=== PATIENT | female | born 1980 | race African-American/Black ===

== ENCOUNTER 2020-02-27 00:32 | Emergency (ER) | payer OTHER ==
[~2020-02-27] VITALS: Ht 157.5 cm; Wt 88.6 kg
--- NOTE | 2020-02-27 00:38 | PHYS DOC ---
Past History Past Medical History: CAD, HIV, Hypertension Adult General Chief Complaint Chief Complaint: CHEST PAIN HPI HPI Patient is a 39-year-old female who presents for chest pain. Onset was 3 days ago and has been waxing and waning. Patient reports current episode started 1 hour ago and work here from sleep. Nothing known makes better or worse. Pain described as deep substernal pressure with radiation into left upper extremity, reports it is 8/10 in severity on arrival and has been constant since onset 1 hour ago. Associated symptoms include nausea and mild shortness of breath. Patient denies any fever, COVID-19 contacts, URI-like symptoms, abdominal pain, hemoptysis, productive cough, prior blood clots, recent travel/long distance travel. Of note, patient is HIV positive but admits she has been at undetectable levels for " years". She has history of x2 prior myocardial infarctions and reports x1 cardiac stent that was placed 6 years ago at time of last PR. She takes Plavix daily. She lost insurance coverage and has not seen any of her outpatient physicians in 2019 but she has been compliant with all previously prescribed meds daily. She has nitroglycerin at home which typically resolves similar pains such as presenting pain today but has been out of this me dication for past 1 week Review of Systems Review of Systems Fourteen body systems of review of systems have been reviewed. See HPI for pertinent positives and negative responses, other fall all other systems are negative, non-pertinent or non-contributory Physical Exam Physical Exam Constitutional: Well developed, well nourished, moderate distress, non-toxic appearance. HENT: Normocephalic, atraumatic, bilateral external ears normal, oropharynx moist, no oral exudates, nose normal. Eyes: PERRLA, EOMI, conjunctiva normal, no discharge. Neck: Normal range of motion, no tenderness, supple, no stridor. Cardiovascular: Heart rate regular, sinus rhythm, no murmurs rubs or gallops, nontender chest wall Lungs & Thorax: Bilateral breath sounds clear to auscultation Abdomen: Bowel sounds normal, soft, no tenderness, no masses, no pulsatile masses. Nonsurgical abdomen, no peritoneal signs Skin: Warm, dry, no erythema, no rash. Back: No tenderness, no CVA tenderness. Extremities: No tenderness, no cyanosis, no clubbing, ROM intact, no edema. Neurologic: Alert and oriented X 3, grossly normal motor & sensory function, no focal deficits noted. Psychologic: Affect normal, judgement normal, anxious mood Current Patient Data Vital Signs Vital Signs Date Time Temp Pulse Resp B/P (MAP) Pulse Ox O2 Delivery O2 Flow Rate FiO2 02/27/20 01:12 85 122/87 EKG EKG EKG ordered and interpreted by myself at 00 48 hours as sinus rhythm at 82 bpm, unremarkable intervals, no axis deviation, Q waves present in leads III and aVF likely from prior PR, no acute ischemic findings, no STEMI Radiology/Procedures Radiology/Procedures 1 view chest radiograph ordered and interpreted by myself as no acute cardiopulmonary abnormalities, official radiologist read pending at this time Course & Med Decision Making Course & Med Decision Making Patient seen on immediate ER arrival ABCs grossly non-concerning, IV access obtained Comprehensive history and physical exam performed, subsequent diagnostic work-up ordered 1 L normal saline bolus, x2 sublingual nitros and 4mg IV morphine administered with moderate relief in symptomology ED work-up reviewed, no emergent or surgical findings but did discuss patient is high risk for potential adverse cardiac events if discharged home, I recommended admission for further cardiac monitoring but she declined I will write her a new prescription for nitroglycerin and advised her to follow- up with PCP first thing Friday The patient is AAOx3, exhibits no alcohol or drug intoxication to a point that would impair ability to delineate a choice, and demonstrates all four diego elements of capacity to make decisions regarding the medical care offered. - Patient able to Communicate their treatment choice - Patient able to Understand and recall information - Patient able to Appreciate and process probable outcomes of their condition - Patient able to Reason through communication their rationalization about their choice of care options, regardless of whether I as their provider agree with their rationale. Risks and Recommendations: The risks of refusing recommended care that were disclosed and acknowledged by the patient include loss of current lifestyle, permanent mental impairment, and . The recommended medical care being refused has been discussed with the patient and is to stay for continued monitoring, workup, and possible treatment. Discharge Care: The patient understands they are welcome to return to the hospital at any time to receive the recommended care or any other care at any time, regardless of their ability to pay for such care. Discharge instructions were provided to the patient. Dragon Disclaimer Dragon Disclaimer This electronic medical record was generated, in whole or in part, using a voice recognition dictation system. PERC Rule for PE PERC Rule for PE Response (Comments) Value Age > 50: No 0 HR > 100: No 0 Sa02 on room air <95%: No 0 Unilateral leg swelling: No 0 Hemoptysis: No 0 Recent surgery or trauma: No 0 Prior PE or DVT: No 0 Hormone use: No 0 Total 0 The HEART Score for CP Pts HEART Score for Chest Pain: HEART Score for Chest Pain Response (Comments) Value History Highly Suspicious 2 ECG Normal 0 Age < 45 0 Risk Factors >3 Risk Factors or Hx CAD 2 Troponin < Normal Limit 0 Total 4 Risk Factors: Risk Factors: DM, Current or recent (<one month) smoker, HTN, HLP, family history of CAD, obesity. Risk Scores: Score 0 - 3: 2.5% MACE over next 6 weeks - Discharge Home Score 4 - 6: 20.3% MACE over next 6 weeks - Admit for Clinical Observation Score 7 - 10: 72.7% MACE over next 6 weeks - Early Invasive Strategies Departure Departure: Impression: Primary Impression: Left against medical advice Additional Impressions: Chest pain, rule out acute myocardial infarction Hx of heart artery stent Disposition: 07 AGAINST MEDICAL ADVICE Condition: STABLE Patient Instructions: Chest Pain Observation Additional Instructions: You have been evaluated in the Emergency Department today. You are refusing further testing, imaging, and further admission and choosing to leave against medical advice. You were advised of your risks of leaving and understand that permanent harm, or even , can occur from failing to follow the recommendations of the physician. Please follow up with your primary care physician as needed. If you do not have a primary doctor, you can call your insurance company to find one. If you do not have insurance, you can go to the finance/registration department for more assistance. Return to the Emergency Department immediately if you experience worsening or uncontrolled pain, persistent fevers, recurrent vomiting, blood in vomit, blood in stool, dark tarry stool, chest pain, shortness of breath, or for any other concerning symptoms. Scripts Nitroglycerin (NITROGLYCERIN SubLingual) 0.4 Mg Tab.subl 0.4 MG SL PRN Q5MIN PRN for CHEST PAIN, #14 BOTTLE Prov: JANICE SHAH DO 02/27/20 Justification of Admission: Justification of Admission: Justification of Admission Dx: N/A Problem Qualifiers JANICE SHAH DO Feb 27, 2020 00:37
[2020-02-27] MEDS ORDERED: ASPIRIN CHEWABLE 81 MG TABLET. PO ONE (00:45)
[2020-02-27] MEDS: NITROGLYCERIN SUBLINGUAL 0.4 MG BOTTLE OF 25. SL PRN ×2 (01:08→01:12)
[2020-02-27 01:14] LABS: BASO # 0.1 x10^3/uL (0.0-0.2); BASO % 1 % (0-3); EOS # 0.1 x10^3/uL (0.0-0.7); EOS % 1 % (0-3); HEMATOCRIT 44.2 % (36.0-47.0); HEMOGLOBIN 15.6 g/dL (12.0-15.5); LYMPH # 3.7 x10^3/uL (1.0-4.8); LYMPH % 34 % (24-48); MEAN CORPUSCULAR HEMOGLOBIN 35 pg (25-35); MEAN CORPUSCULAR HGB CONC 35 g/dL (31-37); MEAN CORPUSCULAR VOLUME 100 fL (79-100); MONO # 0.7 x10^3/uL (0.0-1.1); MONO % 6 % (0-9); NEUT # 6.3 x10^3uL (1.8-7.7); NEUT % 58 % (31-73); PLATELET COUNT 290 x10^3/uL (140-400); RED BLOOD COUNT 4.44 x10^6/uL (3.50-5.40); RED CELL DISTRIBUTION WIDTH 11.5 % (11.5-14.5); WHITE BLOOD COUNT 10.9 x10^3/uL (4.0-11.0)
[2020-02-27] MEDS ORDERED: IV NORMAL SALINE 1,000ML 1,000 ML IV ONE (01:30)
[2020-02-27 01:36] LABS: ALBUMIN 3.5 g/dL (3.4-5.0); ALBUMIN/GLOBULIN RATIO 0.9 (1.0-1.7); CALCIUM 8.8 mg/dL (8.5-10.1); CREATININE 1.1 mg/dL (0.6-1.0); MAGNESIUM 1.7 mg/dL (1.8-2.4); TOTAL BILIRUBIN 0.3 mg/dL (0.2-1.0); TOTAL PROTEIN 7.4 g/dL (6.4-8.2)
[2020-02-27] MEDS ORDERED: POTASSIUM CHLORIDE 20 MEQ TABLET.ER. PO ONE (01:45)
[2020-02-27] MEDS ORDERED: MORPHINE SULFATE 4 MG/ML DISP.SYRIN. IV ONE (02:00)
[2020-02-27] MEDS ORDERED: EMTR1TAB9 PO (03:19)
[2020-02-27] MEDS ORDERED: NAPR-514 PO (03:19)
[2020-02-27] MEDS ORDERED: ASPI81TA59 PO (03:19)
[2020-02-27] MEDS ORDERED: ALBU2.5V8 INH (03:19)
[2020-02-27] MEDS ORDERED: potassium OTC PO (03:19)
[2020-02-27] MEDS ORDERED: CLOP75TA57 PO (03:19)
[2020-02-27] MEDS ORDERED: FLUO40CA9 PO (03:19)
[2020-02-27] MEDS ORDERED: ATEN1TAB4 PO (03:19)
--- NOTE | 2020-02-27 03:50 | RAD ---
CHEST AP ONLY Clinical Indication: Reason: cp / Comparison: Two-view chest, August 10, 2005. Findings: The cardiomediastinal silhouette is normal. Lungs are clear. There is no pneumothorax. No pleural effusion is appreciated. No acute bone abnormality. IMPRESSION: No acute cardiopulmonary process. Electronically signed by: Darrion Warner MD (02/27/2020 3:47 AM) [facility]
[2020-02-27 03:52] LABS: AMPHETAMINE/METHAMPHETAMINE NEG (NEG); BARBITURATES NEG (NEG); BENZODIAZEPINES NEG (NEG); CANNABINOIDS NEG (NEG); COCAINE NEG (NEG); METHADONE NEG (NEG); OPIATES POS (NEG); PHENCYCLIDINE NEG (NEG)
[2020-02-27] MEDS ORDERED: NITR0.4T22 SL (04:06)
[2020-02-27] MEDS ORDERED: IBUPROFEN 600 MG TABLET. PO ONE ×2 (04:15→04:47)
[2020-02-27 04:40] VITALS: BP 132/80
--- NOTE | 2020-02-27 05:31 | EKG ---
[facility] ED [facility] [place] [id number] Test Date: 2020-02-27 Test Time: 00:37:42 Pat Name: KIMBERLEY DELGADO Department: Room: Gender: F [employer]: : 1980 Requested By: JANICE SHAH Order Number: [id number] Reading MD: Measurements Intervals Fonda Rate: 82 P: 26 TN: 148 QRS: 35 QRSD: 92 T: 13 QT: 392 QTc: 461 Interpretive Statements SINUS RHYTHM NORMAL ECG RI6.02 No previous ECG available for comparison
== END 2020-02-27 04:45 | disposition left against medical advice (07) ==
LOC: ER 00:32
DX: R07.2 Precordial pain (principal); R06.02 Shortness of breath; I10 Essential (primary) hypertension
CPT/HCPCS: 36415; 71045; 80053; 80307; 83690; 83735; 83880; 84484; 84702; 85025; 93005; 96361; 96374; 99285; J2270; J7030

== ENCOUNTER 2020-04-04 21:11 | Emergency (ER) | payer OTHER ==
[~2020-04-04] VITALS: Ht 157.5 cm; Wt 88.6 kg
[2020-04-04 21:11] VITALS: BP 172/118
[~2020-04-04 21:11] MED LIST: ALBU2.5V8 INH; ASPI81TA59 PO; ATEN1TAB4 PO; CLOP75TA57 PO; EMTR1TAB9 PO; FLUO40CA9 PO; NAPR-514 PO; NITR0.4T22 SL; potassium OTC PO
[2020-04-04] MEDS ORDERED: CYCL5TAB PO (21:53)
[2020-04-04] MEDS ORDERED: ACET-1871 PO (21:53)
--- NOTE | 2020-04-04 21:54 | PHYS DOC ---
Past History Past Medical History: CAD, HIV, Hypertension, IN Past Surgical History: Cholecystectomy, , Tubal ligation, Other Additional Past Surgical Histo: cardiac stents x2 Alcohol Use: Occasionally General Adult EDM: Chief Complaint: BACK PAIN OR INJURY HPI: HPI: Patient is a 39-year-old female with 3 days of worsening back pain after playing racquetball. Has had a history of low back pain and bulging disks with sciatica in the past. Symptoms have been exacerbated by rectal blood. Been taking Aleve without improvement. Pain radiates from her hip down the back of her thigh. No difficulty ambulating. No recent falls or trauma. No fevers, night sweats, weight loss, bowel bladder dysfunction. Review of Systems: Review of Systems: Constitutional: Denies fever or chills Eyes: Denies change in visual acuity HENT: Denies nasal congestion or sore throat Respiratory: Denies cough or shortness of breath Cardiovascular: Denies chest pain or edema GI: Denies abdominal pain, nausea, vomiting, bloody stools or diarrhea : Denies dysuria Musculoskeletal: Back pain Integument: Denies rash Neurologic: Denies headache, focal weakness or sensory changes Endocrine: Denies polyuria or polydipsia Lymphatic: Denies swollen glands Psychiatric: Denies depression or anxiety Heart Score: Risk Factors: Risk Factors: DM, Current or recent (<one month) smoker, HTN, HLP, family history of CAD, obesity. Risk Scores: Score 0 - 3: 2.5% MACE over next 6 weeks - Discharge Home Score 4 - 6: 20.3% MACE over next 6 weeks - Admit for Clinical Observation Score 7 - 10: 72.7% MACE over next 6 weeks - Early Invasive Strategies Allergies: Allergies: Allergies Coded Allergies Type Severity Reaction Last Updated Verified No Known Drug Allergies 02/27/20 No Physical Exam: PE: Constitutional: Well developed, well nourished, no acute distress, non-toxic appearance. [] HENT: Normocephalic, atraumatic, bilateral external ears normal, oropharynx moist, no oral exudates, nose normal. [] Eyes: PERRLA, EOMI, conjunctiva normal, no discharge. [] Neck: Normal range of motion, no tenderness, supple, no stridor. [] Cardiovascular:Heart rate regular rhythm, no murmur [] Lungs & Thorax: Bilateral breath sounds clear to auscultation [] Abdomen: Bowel sounds normal, soft, no tenderness, no masses, no pulsatile masses. [] Skin: Warm, dry, no erythema, no rash. [] Back: No point spinal tenderness, straight leg raise negative Extremities: No tenderness, no cyanosis, no clubbing, ROM intact, no edema. [] Neurologic: Alert and oriented X 3, normal motor function, normal sensory function, no focal deficits noted. [] Psychologic: Affect normal, judgement normal, mood normal. [] Current Patient Data: Vital Signs: Vital Signs Date Time Temp Pulse Resp B/P (MAP) Pulse Ox O2 Delivery O2 Flow Rate FiO2 04/04/20 21:11 97.2 90 18 172/118 (136) 99 EKG: EKG: [] Radiology/Procedures: Radiology/Procedures: [] Course & Med Decision Making: Course & Med Decision Making Pertinent Labs and Imaging studies reviewed. (See chart for details) [] Dragon Disclaimer: Dragon Disclaimer: This electronic medical record was generated, in whole or in part, using a voice recognition dictation system. Departure Departure: Impression: Primary Impression: Back pain with right-sided sciatica Disposition: 01 DC HOME SELF CARE/HOMELESS Condition: STABLE Referrals: PCP,UNKNOWN (PCP) Patient Instructions: Back Pain, Adult, [id number] Scripts Acetaminophen With Codeine (ACETAMINOPHEN-COD #4 TABLET) 1 Each Tablet 1 EACH PO Q8HRS PRN for PAIN for 3 Days, #9 TAB 0 Refills Prov: KYLE CASSIDY MD 04/04/20 Cyclobenzaprine Hcl (CYCLOBENZAPRINE HCL) 5 Mg Tablet 1 TAB PO TID PRN for MUSCLE SPASMS for 5 Days, #15 TAB 0 Refills Prov: KYLE CASSIDY MD 04/04/20 KYLE CASSIDY MD Apr 04, 2020 21:54
[2020-04-04] MEDS ORDERED: KETOROLAC 30 MG/ML VIAL. IM ONE (22:00)
[2020-04-04] MEDS ORDERED: ORPHENADRINE CITRATE 60 MG/2 ML VIAL. IM ONE (22:00)
== END 2020-04-04 22:25 | disposition home or self-care (01) ==
LOC: ER 21:11
DX: M54.41 Lumbago with sciatica, right side (principal); I25.10 Atherosclerotic heart disease of native coronary artery without angina pectoris; I10 Essential (primary) hypertension; I25.2 Old myocardial infarction; Z90.49 Acquired absence of other specified parts of digestive tract; Z98.890 Other specified postprocedural states; Z98.51 Tubal ligation status
CPT/HCPCS: 96372; 99284; J1885; J2360

== ENCOUNTER 2020-09-28 16:47 | Emergency (ER) | payer OTHER ==
[~2020-09-28] VITALS: Ht 157.5 cm; Wt 109.0 kg
[~2020-09-28 16:47] MED LIST changes: +ACET-1871 PO; +CYCL5TAB PO
[2020-09-28 16:57] VITALS: BP 180/112
[2020-09-28] MEDS ORDERED: IBUP600T16 PO (17:19)
[2020-09-28] MEDS ORDERED: CYCL-331 PO (17:19)
--- NOTE | 2020-09-28 17:19 | PHYS DOC ---
Past History Past Medical History: CAD, HIV, Hypertension, PR (PRADEEP ANTONY APRN) Past Surgical History: Cholecystectomy, , Tubal ligation, Other Additional Past Surgical Histo: cardiac stents x2 (PRADEEP ANTONY APRN) Alcohol Use: Occasionally (PRADEEP ANTONY APRN) Adult General Chief Complaint Chief Complaint: BACK PAIN OR INJURY HPI HPI Patient is a 39-year-old female who presents emergency department complaining of right-sided sciatica pain for the past 3 days. Patient states she works at a [employer] and believes she exacerbated it while she was at work. Patient denies any loss of bowel or loss of bladder, denies any numbness or tin gling to her buttocks, states that this sciatica pain has presented like all of her other sciatica pain flareups. Patient states she has right-sided low lumbar area pain that radiates to the middle of her buttocks. Patient denies any numbness or tingling to her extremities. Denies any traumatic injury to her low back. Patient reports her last menstrual cycle ended on September 212020. Patient denies any allergies to medications, states she only takes [id number] Aleve at home. Patient states she took an Aleve this morning without relief of her 7/10 pain. Patient states she sees her primary care physician Dr. Debra Felipe on 06 October. Patient denies any other physical complaints or physical concerns. (PRADEEP ANTONY APRN) Review of Systems Review of Systems 14 body systems of review of systems have been reviewed. See HPI for pertinent positives and negative responses, otherwise all other systems are negative, nonpertinent or noncontributory. (PRADEEP ANTONY APRN) Allergies Allergies Allergies Coded Allergies Type Severity Reaction Last Updated Verified No Known Drug Allergies 02/27/20 No (PRADEEP ANTONY APRN) Physical Exam Physical Exam Constitutional: Well developed, well nourished, no acute distress, non-toxic appearance. Patient in moderate distress, holding right low back with right hand. HENT: Normocephalic, atraumatic, bilateral external ears normal, oropharynx moist, no oral exudates, nose normal. Eyes: PERRLA, EOMI, conjunctiva normal, no discharge. Neck: Normal range of motion, no tenderness, supple, no stridor. No midline spinal tenderness, no nuchal rigidity, no meningismus signs. Cardiovascular:Heart rate regular rhythm, no murmur, heart sounds S1-S2 to auscultation. Lungs & Thorax: Bilateral breath sounds clear to auscultation all lung weinstein. Abdomen: Bowel sounds normal, soft, no tenderness, no masses, no pulsatile masses. Skin: Warm, dry, no erythema, no rash. Back: No CVA tenderness on the right or left, pain to palpation on lumbar area just to the right of spine, no midline spinal lumbar pain, pain to palpation to middle buttocks area on the right. Distal cap refill less than 2 seconds, no loss of sensation down left or right lower extremity. No pain to palpation along midline vertebral column. Extremities: No tenderness, no cyanosis, no clubbing, ROM intact, no edema. Neurologic: Alert and oriented X 3, normal motor function, normal sensory function, no focal deficits noted. Psychologic: Affect normal, judgement normal, mood normal. (PRADEEP ANTONY APRN) Current Patient Data Vital Signs Vital Signs Date Time Temp Pulse Resp B/P (MAP) Pulse Ox O2 Delivery O2 Flow Rate FiO2 09/28/20 16:57 96.2 91 18 180/112 (134) 99 Room Air (PRADEEP ANTONY APRN) EKG EKG [] (PRADEEP ANTONY APRN) Radiology/Procedures Radiology/Procedures [] (PRADEEP ANTONY APRN) Heart Score C/O Chest Pain: No Risk Factors: Risk Factors: DM, Current or recent (<one month) smoker, HTN, HLP, family history of CAD, obesity. Risk Scores: Risk Factors: DM, Current or recent (<one month) smoker, HTN, HLP, family history of CAD, obesity. (PRADEEP ANTONY APRN) Course & Med Decision Making Course & Med Decision Making Pertinent Labs and Imaging studies reviewed. (See chart for details) 39-year-old female, vital signs reviewed, presents emergency department concerning sciatica flareup on the right. Physical examination was consistent with sciatica pain. Patient had no saddle anesthesia, denied loss of bowel or loss of bladder. We will treat with IM Toradol, 2 p.o. [place]'s, 110 mg Flexeril, will prescribe Flexeril 10 mg and 600 mg ibuprofen for home pain management use. Patient gave verbal understanding of discharge home instructions, muscle relaxer and ibuprofen use for pain, nonpharmacological pain management, strict follow- up with primary care doctor shortly on October 06, return to emergency department precautions and concerns, patient had no further questions or concerns and was discharged home without incident. (PRADEEP ANTONY APRN) Course & Med Decision Making I oversaw care of patient while in ER. I agree to note, plan of care and dispo as stated Electronically signed, Janice Shah DO (JANICE SHAH DO) Elías Disclaimer Elías Disclaimer This electronic medical record was generated, in whole or in part, using a voice recognition dictation system. (PRADEEP ANTONY APRN) Departure Departure: Impression: Primary Impression: Sciatica of right side Disposition: DC HOME SELF CARE/HOMELESS Condition: GOOD Referrals: PCP,UNKNOWN (PCP) Patient Instructions: Sciatica Additional Instructions: You have been diagnosed with sciatica pain on the right, please use medications as prescribed, please keep your appointment with Dr. Debra Felipe on the of this month. Return to the emergency department for worsening symptoms or other concerns. EMERGENCY DEPARTMENT GENERAL DISCHARGE INSTRUCTIONS Thank you for coming to [facility] (ED) today and trusting us with you care. We trust that you had a positivie experience in our Emergency Department. If you wish to speak to the department management, you may call the director at [phone]. YOUR FOLLOW UP INSTRUCTIONS ARE FOLLOWS: 1. Do you have a private Doctor? If you do not have a private doctor, please ask for a resource list of physicians or clinics that may be able to assist you with follow up care. 2. The Emergency Physician has interpreted your x-rays. The X-Ray specialist will also review them. If there is a change in the findings, you will be notified in 48 hours when at all possible. 3. A lab test or culture has been done, your results will be reviewed and you will be notified if you need a change in treatment. ADDITIONAL INSTRUCTIONS AND INFORMATION: 1. Your care today has been supervised by a physician who is specially trained in emergency care. Many problems require more than one evaluation for a complete diagnosis and treatment. We recommend that you schedule your follow up appointment as recommended to ensure complete treatment of you illness or injury. If you are unable to obtain follow up care and continue to have a problem, or if your condition worsens, we recommend that you return to the ED. 2. We are not able to safely determine your condition over the phone nor are we able to give sound medical advice over the phone. For these safety reasons, if you call for medical advice we will ask you to come to the ED for further evaluation. 3. If you have any questions regarding these discharge instructions please call the ED at [phone]. SAFETY INFORMATION: In the interest of safety, wellness, and injury prevention; we encourage you to wear your sealbelt, if you smoke; quite smoking, and we encourage family to use a protective helmet for bicycling and other sporting events that present an increased risk for head injury. IF YOUR SYMPTOMS WORSEN OR NEW SYMPTOMS DEVELOP, OR YOU HAVE CONCERNS ABOUT YOUR CONDITION; OR IF YOUR CONDITION WORSENS WHILE YOU ARE WAITING FOR YOUR FOLLOW UP APPOINTMENT; EITHER CONTACT YOUR PRIMARY CARE DOCTOR, THE PHYSICIAN WHOSE NAME AND NUMBER YOU WERE GIVEN, OR RETURN TO THE ED IMMEDIATELY. Scripts Ibuprofen (IBUPROFEN) 600 Mg Tablet 600 MG PO TID PRN PRN for BACK PAIN, #20 TAB 0 Refills Prov: PRADEEP ANTONY APRN 09/28/20 Cyclobenzaprine Hcl (CYCLOBENZAPRINE HCL) 10 Mg Tablet 1 TAB PO TID PRN PRN for PAIN, #12 TAB 0 Refills Prov: PRADEEP ANTONY APRN 09/28/20 PRADEEP ANTONY APRN Sep 28, 2020 17:19 JANICE SHAH DO Sep 28, 2020 19:24
[2020-09-28] MEDS ORDERED: KETOROLAC 60 MG/2 ML VIAL. IM ONE ×2 (17:29→17:30)
[2020-09-28] MEDS ORDERED: CYCLOBENZAPRINE 10 MG TABLET. ONE (17:29)
[2020-09-28] MEDS ORDERED: HYDROcodone/APAP 5/325MG 1 TAB TABLET ONE (17:29)
[2020-09-28] MEDS ORDERED: CYCLOBENZAPRINE 10 MG TABLET. PO ONE (17:30)
[2020-09-28] MEDS ORDERED: HYDROcodone/APAP 5/325MG 1 TAB TABLET PO ONE (17:30)
== END 2020-09-28 17:39 | disposition home or self-care (01) ==
LOC: ER 16:47
DX: M54.41 Lumbago with sciatica, right side (principal); I10 Essential (primary) hypertension; I25.2 Old myocardial infarction; I25.10 Atherosclerotic heart disease of native coronary artery without angina pectoris; Z98.51 Tubal ligation status; Z90.49 Acquired absence of other specified parts of digestive tract
CPT/HCPCS: 96372; 99283; J1885

== ENCOUNTER 2020-10-09 06:28 | Emergency (ER) | payer OTHER ==
[~2020-10-09] VITALS: Ht 157.5 cm; Wt 109.0 kg
[~2020-10-09 06:28] MED LIST changes: +CYCL-331 PO; +IBUP600T16 PO
[2020-10-09 06:30] VITALS: BP 119/70
--- NOTE | 2020-10-09 06:58 | PHYS DOC ---
Past History Past Medical History: CAD, HIV, Hypertension, [place] Past Surgical History: Cholecystectomy, , Tubal ligation, Other Additional Past Surgical Histo: cardiac stents x2 Alcohol Use: Occasionally General Adult EDM: Chief Complaint: LACERATION/AVULSION HPI: HPI: 39-year-old female presents with laceration of the palm of the left hand. 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 She was using a box knife when it slipped and she lacerated the base of the palm of her left hand. It is about 1.5 cm. The patient is on a blood thinner so it took a while to make it stop bleeding but she was able to get the bleeding to stop. She thoroughly irrigated the wound. This occurred about 10 hours ago. She realized she needed stitches so she came to emergency room. Her tetanus is up-to-date. She has no other complaints at this time Review of Systems: Review of Systems: Constitutional: Denies fever or chills Eyes: Denies change in visual acuity HENT: Denies nasal congestion or sore throat Respiratory: Denies cough or shortness of breath Cardiovascular: Denies chest pain or edema GI: Denies abdominal pain, nausea, vomiting, bloody stools or diarrhea : Denies dysuria Musculoskeletal: Denies back pain or joint pain Integument: Hand laceration Neurologic: Denies headache, focal weakness or sensory changes Endocrine: Denies polyuria or polydipsia Lymphatic: Denies swollen glands Psychiatric: Denies depression or anxiety Current Medications: Current Meds: Current Medications Medications (Trade) Dose Ordered Sig/Patrick Start Time Stop Time Status Last Admin Dose Admin Lidocaine/ Epinephrine (Xylocaine 2%-Epi 1:100,000) 20 ml 1X ONCE 10/09/20 07:00 10/09/20 07:01 Allergies: Allergies: Allergies Coded Allergies Type Severity Reaction Last Updated Verified No Known Drug Allergies 02/27/20 No Physical Exam: PE: Constitutional: Well developed, well nourished, no acute distress, non-toxic appearance. [] HENT: Normocephalic, atraumatic, bilateral external ears normal, oropharynx moist, no oral exudates, nose normal. [] Eyes: PERRLA, EOMI, conjunctiva normal, no discharge. [] Neck: Normal range of motion, no tenderness, supple, no stridor. [] Cardiovascular:Heart rate regular rhythm, no murmur [] Lungs & Thorax: Bilateral breath sounds clear to auscultation [] Abdomen: Bowel sounds normal, soft, no tenderness, no masses, no pulsatile masses. [] Skin: 1.5 cm linear laceration of the left hand anterior side just distal to the wrist [] Back: No tenderness, no CVA tenderness. [] Extremities: No tenderness, no cyanosis, no clubbing, ROM intact, no edema. [] Neurologic: Alert and oriented X 3, normal motor function, normal sensory function, no focal deficits noted. [] Psychologic: Affect normal, judgement normal, mood normal. [] Current Patient Data: Vital Signs: Vital Signs Date Time Temp Pulse Resp B/P (MAP) Pulse Ox O2 Delivery O2 Flow Rate FiO2 10/09/20 06:30 98.4 74 16 119/70 (86) 98 Room Air EKG: EKG: [] Radiology/Procedures: Radiology/Procedures: [] Heart Score: C/O Chest Pain: N/A Risk Factors: Risk Factors: DM, Current or recent (<one month) smoker, HTN, HLP, family history of CAD, obesity. Risk Scores: Score 0 - 3: 2.5% MACE over next 6 weeks - Discharge Home Score 4 - 6: 20.3% MACE over next 6 weeks - Admit for Clinical Observation Score 7 - 10: 72.7% MACE over next 6 weeks - Early Invasive Strategies Course & Med Decision Making: Course & Med Decision Making Pertinent Labs and Imaging studies reviewed. (See chart for details) I repaired the patient's laceration with sutures. See laceration note for more details. Her tetanus is up-to-date. No antibiotics are indicated at this time. I have given the patient warning signs for infection. She is stable for discharge at this time. [] Dragon Disclaimer: Dragon Disclaimer: This electronic medical record was generated, in whole or in part, using a voice recognition dictation system. Laceration Repair Lac Repair Indication: [] 1.5 cm linear laceration of the left hand Procedure: I obtained verbal consent from the patient for suture repair of her left hand laceration. The wound was thoroughly irrigated with normal saline under pressure. There were no foreign bodies found. I anesthetized the wound with 1 cc of 2% lidocaine with epinephrine. Once good anesthesia was achieved, I repaired the wound with 4-0 Ethilon suture. There were 3 sutures in an interrupted fashion. There is good skin approximation. Bleeding was controlled. The wound was covered with a clean dry dressing. Total repaired wound length: 1.5 cm Other Items: None The patient tolerated the procedure well Complications: None. Departure Departure: Impression: Primary Impression: Laceration of left hand without foreign body Qualified Codes: S61.412A - Laceration without foreign body of left hand, initial encounter Disposition: HOME / SELF CARE / HOMELESS Condition: IMPROVED Referrals: PCP,UNKNOWN (PCP) Patient Instructions: Laceration Care, Adult, [id number] KHRIS DAY DO Oct 09, 2020 06:58
[2020-10-09] MEDS ORDERED: LIDOCAINE 2%/EPI 1:100,000 20 ML VIAL. IJ ONE (07:00)
== END 2020-10-09 07:27 | disposition home or self-care (01) ==
LOC: ER 06:28
DX: S61.412A Laceration without foreign body of left hand, initial encounter (principal); I10 Essential (primary) hypertension; I25.2 Old myocardial infarction; I25.10 Atherosclerotic heart disease of native coronary artery without angina pectoris; Z95.5 Presence of coronary angioplasty implant and graft; W26.0XXA Contact with knife, initial encounter; Y93.89 Activity, other specified; Y92.89 Other specified places as the place of occurrence of the external cause; Y99.8 Other external cause status
CPT/HCPCS: 12001; 99282

== ENCOUNTER 2020-11-06 16:31 | Emergency (ER) | payer OTHER ==
[~2020-11-06] VITALS: Ht 157.5 cm; Wt 109.0 kg
[2020-11-06 17:00] VITALS: BP 125/88
[2020-11-06] MEDS ORDERED: CEPH750C9 PO (17:01)
--- NOTE | 2020-11-06 17:01 | PHYS DOC ---
Past History Past Medical History: CAD, HIV, Hypertension, [place] Past Surgical History: Cholecystectomy, , Tubal ligation, Other Additional Past Surgical Histo: cardiac stents x2 Alcohol Use: Occasionally General Adult EDM: Chief Complaint: LACERATION/AVULSION HPI: HPI: 39-year-old female presents with left index finger laceration. The patient was reaching into a sink when her acrylic nails caught the edge and tore back causing a laceration in the tip and side of her finger. This happened more than 48 hours ago. The patient did not want to come into the hospital because she knew she was going to need stitches. She denies fever or chills. She has no other complaints at this time. Review of Systems: Review of Systems: Constitutional: Denies fever or chills Eyes: Denies change in visual acuity HENT: Denies nasal congestion or sore throat Respiratory: Denies cough or shortness of breath Cardiovascular: Denies chest pain or edema GI: Denies abdominal pain, nausea, vomiting, bloody stools or diarrhea : Denies dysuria Musculoskeletal: Denies back pain or joint pain Integument: Laceration of the lateral left index finger Neurologic: Denies headache, focal weakness or sensory changes Endocrine: Denies polyuria or polydipsia Lymphatic: Denies swollen glands Psychiatric: Denies depression or anxiety Allergies: Allergies: Allergies Coded Allergies Type Severity Reaction Last Updated Verified No Known Drug Allergies 02/27/20 No Physical Exam: PE: Constitutional: Well developed, well nourished, morbidly obese, no acute distress, non-toxic appearance. [] HENT: Normocephalic, atraumatic, bilateral external ears normal, oropharynx moist, no oral exudates, nose normal. [] Eyes: PERRLA, EOMI, conjunctiva normal, no discharge. [] Neck: Normal range of motion, no tenderness, supple, no stridor. [] Cardiovascular:Heart rate regular rhythm, no murmur [] Lungs & Thorax: Bilateral breath sounds clear to auscultation [] Abdomen: Bowel sounds normal, soft, no tenderness, no masses, no pulsatile masses. [] Skin: 2 cm curved laceration of the lateral left index finger, possibly involving the distal nailbed [] Back: No tenderness, no CVA tenderness. [] Extremities: No tenderness, no cyanosis, no clubbing, ROM intact, no edema. [] Neurologic: Alert and oriented X 3, normal motor function, normal sensory function, no focal deficits noted. [] Psychologic: Affect normal, judgement normal, mood normal. [] Current Patient Data: Vital Signs: Vital Signs Date Time Temp Pulse Resp B/P (MAP) Pulse Ox O2 Delivery O2 Flow Rate FiO2 11/06/20 16:39 98.5 89 18 147/109 (122) 98 EKG: EKG: [] Radiology/Procedures: Radiology/Procedures: [] Heart Score: C/O Chest Pain: N/A Risk Factors: Risk Factors: DM, Current or recent (<one month) smoker, HTN, HLP, family history of CAD, obesity. Risk Scores: Score 0 - 3: 2.5% MACE over next 6 weeks - Discharge Home Score 4 - 6: 20.3% MACE over next 6 weeks - Admit for Clinical Observation Score 7 - 10: 72.7% MACE over next 6 weeks - Early Invasive Strategies Course & Med Decision Making: Course & Med Decision Making Pertinent Labs and Imaging studies reviewed. (See chart for details) Given the timeframe from the initial injury, I cannot repair the wound. It will have to heal by secondary intention. We did help the patient clipped off most of her acrylic nail so it is easier to wrap. I will place her on antibiotics for 7 days. She is stable for discharge at this time. [] Dragon Disclaimer: Dragon Disclaimer: This electronic medical record was generated, in whole or in part, using a voice recognition dictation system. Departure Departure: Impression: Primary Impression: Laceration of left index finger with damage to nail Qualified Codes: S61.311A - Laceration without foreign body of left index finger with damage to nail, initial encounter Disposition: HOME / SELF CARE / HOMELESS Condition: STABLE Referrals: GEGE PLASCENCIA MD (PCP) Patient Instructions: Fingertip Laceration Scripts Cephalexin (KEFLEX) 750 Mg Capsule 1 CAP PO BID for infection prophylaxis for 7 Days, #14 CAP 0 Refills Prov: KHRIS DAY DO 11/06/20 KHRIS DAY DO November 06, 2020 17:01
== END 2020-11-06 17:05 | disposition home or self-care (01) ==
LOC: ER 16:31
DX: S61.311A Laceration without foreign body of left index finger with damage to nail, initial encounter (principal); I25.10 Atherosclerotic heart disease of native coronary artery without angina pectoris; I10 Essential (primary) hypertension; I25.2 Old myocardial infarction; W26.8XXA Contact with other sharp object(s), not elsewhere classified, initial encounter; Y93.89 Activity, other specified; Y92.89 Other specified places as the place of occurrence of the external cause; Y99.8 Other external cause status
CPT/HCPCS: 99283

== ENCOUNTER 2021-01-09 15:00 | Observation (INO) | payer OTHER ==
[~2021-01-09] VITALS: Ht 157.5 cm; Wt 99.0 kg
[~2021-01-09 15:00] MED LIST changes: +CEPH750C9 PO
[2021-01-09] MEDS ORDERED: ASPIRIN 325 MG TABLET PO ONE (15:15)
--- NOTE | 2021-01-09 15:16 | PHYS DOC ---
Past History Past Medical History: CAD, HIV, Hypertension, [place] (TALONBECCA SHRIMP PACKER) Past Surgical History: Cholecystectomy, , Tubal ligation, Other Additional Past Surgical Histo: cardiac stents x2 (HUMABECCA Johnston SHRIMP PACKER) Alcohol Use: Occasionally (ZEYNEPBECCA ABREU SHRIMP PACKER) Adult General Chief Complaint Chief Complaint: CHEST PAIN HPI HPI Patient is a female with a history of hypertension, MS, HIV, who presents to the ED today complaining of 9 out of 10 sharp substernal chest pain radiating to her back that began a couple minutes prior to coming to the ED. Patient denies anything specifically exacerbating or relieving her pain. She states "it is just there". She states she tried taking nitro with no relief. (BECCA HANLEY Sharmin SHRIMP PACKER) Review of Systems Review of Systems Constitutional: Denies fever or chills [] Eyes: Denies change in visual acuity, redness, or eye pain [] HENT: Denies nasal congestion or sore throat [] Respiratory: Denies cough or shortness of breath [] Cardiovascular: No additional information not addressed in HPI [] GI: Denies abdominal pain, nausea, vomiting, bloody stools or diarrhea [] : Denies dysuria or hematuria [] Musculoskeletal: Denies back pain or joint pain [] Integument: Denies rash or skin lesions [] Neurologic: Denies headache, focal weakness or sensory changes [] Endocrine: Denies polyuria or polydipsia [] All other systems were reviewed and found to be within normal limits, except as documented in this note. (BECCA HANLEY SHRIMP PACKER) Allergies Allergies Allergies Coded Allergies Type Severity Reaction Last Updated Verified No Known Drug Allergies 02/27/20 No (TALONBECCA SHRIMP PACKER) Physical Exam Physical Exam Constitutional: Well developed, well nourished, no acute distress, non-toxic appearance. [] HENT: Normocephalic, atraumatic, bilateral external ears normal, oropharynx moist, no oral exudates, nose normal. [] Eyes: PERRLA, EOMI, conjunctiva normal, no discharge. [] Neck: Normal range of motion, no tenderness, supple, no stridor. [] Cardiovascular:Heart rate regular rhythm, no murmur [] Lungs & Thorax: Bilateral breath sounds clear to auscultation [] Abdomen: Bowel sounds normal, soft, no tenderness, no masses, no pulsatile masses. [] Skin: Warm, dry, no erythema, no rash. [] Back: No tenderness, no CVA tenderness. [] Extremities: No tenderness, no cyanosis, no clubbing, ROM intact, no edema. [] Neurologic: Alert and oriented X 3, normal motor function, normal sensory function, no focal deficits noted. [] Psychologic: Affect normal, judgement normal, mood normal. [] (BECCA HANLEY APRN) EKG EKG [address] Aparicio sinus tachycardia HR 105 no STEMI[] [address] Aparicio sinus rhythm HR 95 no STEMI[] (BECCA HANLEY APRN) Radiology/Procedures Radiology/Procedures []PROCEDURE: PORTABLE CHEST 1V XR CHEST 1V History: Chest pain Comparison: 02/27/2020 Technique: AP radiograph of the chest. Findings: The lungs are adequately inflated. There is hazy opacification at the ling galina/left lower lobe which partially obscures the left diaphragm. This looks similar however less prominent on comparison. No pleural effusion or pneumothorax. Cardiomediastinal silhouette and pulmonary vasculature are within normal limits. Osseous structures and soft tissues are unremarkable. Impression: 1. Obscuration of the left hemidiaphragm laterally appears slightly similar to comparison however more conspicuous. This may be due to airspace disease such as pneumonia versus artifact from prominent lateral extent of mediastinal fat. Electronically signed by: Lico Diaz MD (01/09/2021 3:26 PM) [facility] DICTATED AND SIGNED BY: LICO DIAZ MD DATE: 01/09/21 1523 CC: EMERGENCY,DEPARTMENT; GEGE PLASCENCIA MD; BECCA HANLEY APRN ~MTH0 0 (BECCA HANLEY APRN) Heart Score C/O Chest Pain: Yes HEART Score for Chest Pain: HEART Score for Chest Pain Response (Comments) Value History Slighlty/Non-Suspicious 0 ECG Normal 0 Age >45 - < 65 1 Risk Factors 1 or 2 Risk Factors 1 Troponin < Normal Limit 0 Total 2 Risk Factors: Risk Factors: DM, Current or recent (<one month) smoker, HTN, HLP, family history of CAD, obesity. Risk Scores: Risk Factors: DM, Current or recent (<one month) smoker, HTN, HLP, family history of CAD, obesity. (BECCA HANLEY APRN) Course & Med Decision Making Course & Med Decision Making Pertinent Labs and Imaging studies reviewed. (See chart for details) This is a 40-year-old female patient with history of 2 MIs presenting today complaining of chest pain that began a couple minutes prior to coming to the ED. EKG negative for STEMI. CBC WITH A WBC OF 12.3, CMP with no acute findings. Chest x-ray interpreted by radiologist was noted for obscuration of the left hemidiaphragm laterally appears slightly similar to comparison however more conspicuous. This may be due to airspace disease such as pneumonia versus artifact from prominent lateral extent of mediastinal fat. CTA chest was obtained which was negative. Spoke with Dr. Wei who accepted patient for admission Routine consult placed for cardiology (BECCA HANLEY APRN) Dragon Disclaimer Dragon Disclaimer This electronic medical record was generated, in whole or in part, using a voice recognition dictation system. (BECCA HANLEY APRN) Departure Departure: Impression: Primary Impression: Chest pain Disposition: ADMITTED INPATIENT Condition: STABLE Referrals: GEGE PLASCENCIA MD (PCP) Attending Signature Attending Signature I have reviewed the PA/PEDIATRIC SPEECH LANGUAGE PATHOLOGIST's note and plan of care. I was available for consultation as needed during the patient's visit in the emergency department. I agree with the clinical impression, plan, and disposition. (PRADEEP APARICIO DO) Problem Qualifiers Primary Impression: Chest pain Chest pain type: unspecified Qualified Codes: R07.9 - Chest pain, unspecified BECCA HANLEY APRN Jan 09, 2021 15:16 PRADEEP APARICIO DO Jan 09, 2021 21:10
[2021-01-09] MEDS: NITROGLYCERIN SUBLINGUAL 0.4 MG BOTTLE OF 25. SL PRN ×2 (15:22→16:04)
[2021-01-09] MEDS ORDERED: ONDANSETRON PF 4 MG/2 ML VIAL. ONE (15:24)
[2021-01-09] MEDS: MORPHINE SULFATE 4 MG/ML DISP.SYRIN. IV/SQ PRN ×2 (15:27→16:03)
--- NOTE | 2021-01-09 15:28 | RAD ---
XR CHEST 1V History: Chest pain Comparison: 02/27/2020 Technique: AP radiograph of the chest. Findings: The lungs are adequately inflated. There is hazy opacification at the lingula/left lower lobe which p artially obscures the left diaphragm. This looks similar however less prominent on comparison. No ple ural effusion or pneumothorax. Cardiomediastinal silhouette and pulmonary vasculature are within norm al limits. Osseous structures and soft tissues are unremarkable. Impression: 1. Obscuration of the left hemidiaphragm laterally appears slightly similar to comparison however mo re conspicuous. This may be due to airspace disease such as pneumonia versus artifact from prominent lateral extent of mediastinal fat. Electronically signed by: Lico Santos MD (01/09/2021 3:26 PM) [facility]
[2021-01-09] MEDS ORDERED: ONDANSETRON PF 4 MG/2 ML VIAL. IVP ONE (15:30)
[2021-01-09 15:39] LABS: BASO # 0.1 x10^3/uL (0.0-0.2); BASO % 1 % (0-3); EOS # 0.2 x10^3/uL (0.0-0.7); EOS % 1 % (0-3); HEMATOCRIT 42.2 % (36.0-47.0); HEMOGLOBIN 14.8 g/dL (12.0-15.5); LYMPH # 3.7 x10^3/uL (1.0-4.8); LYMPH % 30 % (24-48); MEAN CORPUSCULAR HEMOGLOBIN 34 pg (25-35); MEAN CORPUSCULAR HGB CONC 35 g/dL (31-37); MEAN CORPUSCULAR VOLUME 96 fL (79-100); MONO % 8 % (0-9); NEUT # 7.4 x10^3uL (1.8-7.7); NEUT % 60 % (31-73); PLATELET COUNT 402 x10^3/uL (140-400); RED CELL DISTRIBUTION WIDTH 12.6 % (11.5-14.5); WHITE BLOOD COUNT 12.3 x10^3/uL (4.0-11.0)
[2021-01-09 15:43] LABS: CALCIUM 8.9 mg/dL (8.5-10.1); GFR 73.9; POTASSIUM 3.4 mmol/L (3.5-5.1)
[2021-01-09] MEDS ORDERED: IOHEXOL 350 MG/ML 100 ML VIAL. IV ONE (15:45)
[2021-01-09 15:59] LABS: ALBUMIN 3.7 g/dL (3.4-5.0); MAGNESIUM 1.7 mg/dL (1.8-2.4); TOTAL BILIRUBIN 0.4 mg/dL (0.2-1.0); TOTAL PROTEIN 7.5 g/dL (6.4-8.2)
[2021-01-09] MEDS ORDERED: CONTRAST GIVEN. MC PRN (16:00)
--- NOTE | 2021-01-09 16:26 | RAD ---
Exam: CT chest with contrast INDICATION: Shortness of air TECHNIQUE: Sequential axial images through the chest obtained following the administration of 67 mL o f Isovue-370 IV contrast. Sagittal and coronal reformatted images were reconstructed from the axial d gloria and reviewed. 3-D reformatted images were reconstructed from the axial data and reviewed. Exposure: One or more of the following in the visualized dose reduction techniques were utilized for this examination: 1. Automated exposure control 2. Adjustment of the MA and/or KV according to patient size 3. Use of iterative of reconstructive technique Comparisons: Chest x-ray same day FINDINGS: The visualized portions of the thyroid are unremarkable. No enlarged mediastinal lymph nodes are iden tified. Heart size is normal. No pericardial effusion. Thoracic aorta has a normal course and caliber. Pulmon layla artery is not enlarged. No pulmonary embolus identified within the main, lobar or segmental pulmo nary arteries. Airways are patent. No consolidation or pneumothorax. No suspicious lung nodules. No pleural effusion or thickening. Visualized upper abdomen is unremarkable. No suspicious osseous lesions or acute fractures. IMPRESSION: No pulmonary embolus identified within the main, lobar or segmental pulmonary arteries. Electronically signed by: Iron Malik MD (01/09/2021 4:24 PM) [facility]
[2021-01-09] MEDS ORDERED: ONDANSETRON PF 4 MG/2 ML VIAL. IVP PRN (16:45)
[2021-01-09] MEDS ORDERED: NITROGLYCERIN SUBLINGUAL 0.4 MG BOTTLE OF 25. SL PRN (16:45)
[2021-01-09 17:05] LABS: CLARITY,URINE CLEAR; COLOR,URINE YELLOW
[2021-01-09 17:06] LABS: BILIRUBIN,URINE NEG (NEG); GLUCOSE,URINE NEG (NEG); NITRITE,URINE NEG (NEG); UROBILINOGEN,URINE 0.2 mg/dL (0.2 mg/dL)
[2021-01-09 17:09] LABS: BACTERIA,URINE 0 /HPF (0-FEW); RBC,URINE OCC /HPF (0-2); SQUAMOUS EPITHELIAL CELL,UR OCC /LPF; WBC,URINE OCC /HPF (0-4)
[2021-01-09] MEDS ORDERED: LIDO:MAALOX 1:1 20 ML SINGLE DOSE. ONE (17:20)
[2021-01-09] MEDS ORDERED: LIDO:MAALOX 1:1 20 ML SINGLE DOSE. PO PRN (17:30)
[2021-01-09] MEDS: MORPHINE SULFATE 4 MG/ML DISP.SYRIN. IVP PRN ×3 (17:49→23:35)
[2021-01-09 18:13] VITALS: BP 135/84
[2021-01-09 19:09] LABS: BARBITURATES NEG (NEG); BENZODIAZEPINES NEG (NEG); CANNABINOIDS NEG (NEG); COCAINE NEG (NEG); METHADONE NEG (NEG); OPIATES POS (NEG); PHENCYCLIDINE NEG (NEG)
[2021-01-09 19:18] LABS: AMPHETAMINE/METHAMPHETAMINE NEG (NEG)
[2021-01-09 19:58] VITALS: BP 114/75
[2021-01-09 20:03] VITALS: BP 123/86
[2021-01-09] MEDS ORDERED: NICOTINE 21MG PATCH. TD SCH (22:10)
[2021-01-09 23:47] VITALS: BP 139/98
--- NOTE | 2021-01-10 03:17 | EKG ---
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
--- NOTE | 2021-01-10 03:18 | EKG ---
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
[2021-01-10] MEDS: MORPHINE SULFATE 4 MG/ML DISP.SYRIN. IVP PRN ×3 (05:30→11:46)
[2021-01-10] MEDS: NITROGLYCERIN SUBLINGUAL 0.4 MG BOTTLE OF 25. SL PRN ×2 (06:03→06:39)
[2021-01-10 06:19] VITALS: BP 103/69
[2021-01-10 06:50] LABS: BASO # 0.1 x10^3/uL (0.0-0.2); BASO % 1 % (0-3); EOS # 0.1 x10^3/uL (0.0-0.7); EOS % 2 % (0-3); HEMATOCRIT 39.9 % (36.0-47.0); LYMPH # 1.7 x10^3/uL (1.0-4.8); LYMPH % 20 % (24-48); MEAN CORPUSCULAR HEMOGLOBIN 34 pg (25-35); MEAN CORPUSCULAR HGB CONC 35 g/dL (31-37); MEAN CORPUSCULAR VOLUME 97 fL (79-100); MONO # 0.6 x10^3/uL (0.0-1.1); MONO % 7 % (0-9); NEUT # 6.3 x10^3uL (1.8-7.7); NEUT % 71 % (31-73); PLATELET COUNT 338 x10^3/uL (140-400); RED BLOOD COUNT 4.12 x10^6/uL (3.50-5.40); RED CELL DISTRIBUTION WIDTH 12.8 % (11.5-14.5); WHITE BLOOD COUNT 8.8 x10^3/uL (4.0-11.0)
[2021-01-10 07:00] LABS: ALBUMIN 3.3 g/dL (3.4-5.0); ALBUMIN/GLOBULIN RATIO 0.9 (1.0-1.7); CALCIUM 7.8 mg/dL (8.5-10.1); GFR 73.9; POTASSIUM 3.2 mmol/L (3.5-5.1); TOTAL BILIRUBIN 0.4 mg/dL (0.2-1.0)
--- NOTE | 2021-01-10 07:35 | PDOC2 ---
JAEYADI WATTS SEBASTIÁN 01/10/21 0734: CARDIAC CONSULT DATE OF CONSULT DOS: DATE: 01/10/21 TIME: 07:30 REASON FOR CONSULT Reason for Consult Chest pain REFERRING PHYSICIAN Referring Physician Trinh Baker APRN SOURCE Source: Chart review, Patient HPI History of Present Illness This is a 40 yo female who presented secondary to chest pain. Patient reports pain began yesterday. About 1 hour prior to arrival. Reprots harp, stabbing pain in her central chest. Associated with "pulled muscle" feeling in her upper back. Was nauseated, diaphoretic, and vomiting. [place] short of breath, but reports pain too intense to take a deep breath. Patient was concerned with pain in her upper back as she reports this was same pain she experienced at age 33 when she suffered a GA and underwent PCI/stent placement at [facility]. Pain improved some with morphine. No significant improvement with nitro. No change with GI cocktail. 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 Reports pain continues at 9/10. CTA chest negative. Troponin series normal, AMI ruled out. PAST MEDICAL HISTORY Cardiovascular: CAD, HTN PAST SURGICAL HISTORY Past Surgical History: Other (PCI/stent ) FAMILY HISTORY Family History: Hypertension SOCIAL HISTORY ALCOHOL: none Drugs: None Lives: with Family CURRENT MEDICATIONS Current Medications Current Medications Aspirin (Lillaina Aspirin) 325 mg 1X ONCE PO Last administered on 01/09/21at 15:22; Start 01/09/21 at 15:15; Stop 01/09/21 at 15:16; Status DC Nitroglycerin (Nitrostat) 0.4 mg PRN Q5MIN PRN SL CP RATING > 1/10 Last administered on 01/10/21at 06:39; Start 01/09/21 at 15:15; Stop 01/10/21 at 15:14 Morphine Sulfate (Morphine 4mg Syringe) 4 mg PRN Q15MIN PRN IV/SQ PAIN GREATER THAN 3/10 Last administered on 01/09/21at 16:03; Start 01/09/21 at 15:15; Stop 01/09/21 at 16:48; Status DC Ondansetron HCl (Zofran) 4 mg 1X ONCE IVP Last administered on 01/09/21at 15:27; Start 01/09/21 at 15:30; Stop 01/09/21 at 15:31; Status DC Ondansetron HCl (Zofran) 4 mg STK-MED ONCE .ROUTE ; Start 01/09/21 at 15:24; Stop 01/09/21 at 15:24; Status DC Iohexol (Omnipaque 350 Mg/ml) 100 ml 1X ONCE IV Last administered on 01/09/21at 15:51; Start 01/09/21 at 15:45; Stop 01/09/21 at 15:46; Status DC Info (Do NOT chart on this entry -- for MONITORING) 1 each PRN DAILY PRN MC SEE COMMENTS; Start 01/09/21 at 16:00; Stop 01/11/21 at 15:59 Lorazepam (Ativan Inj) 1 mg 1X ONCE IVP Last administered on 01/09/21at 16:13; Start 01/09/21 at 16:15; Stop 01/09/21 at 16:16; Status DC Ondansetron HCl (Zofran) 4 mg PRN Q4HRS PRN IVP NAUSEA/VOMITING; Start 01/09/21 at 16:45; Stop 01/10/21 at 16:44 Morphine Sulfate (Morphine 4mg Syringe) 4 mg PRN Q2HR PRN IVP PAIN Last administered on 01/10/21at 05:30; Start 01/09/21 at 16:45; Stop 01/10/21 at 16:44 Nitroglycerin (Nitrostat) 0.4 mg PRN Q5MIN PRN SL CHEST PAIN; Start 01/09/21 at 16:45; Stop 01/10/21 at 16:44; Status UNV Multi-Ingredient Mouthwash/Gargle (Gi Cocktail) 20 ml PRN 1X PRN PO CHEST PAIN Last administered on 01/09/21at 17:21; Start 01/09/21 at 17:30 Lorazepam (Ativan Inj) 1 mg 1X ONCE IVP Last administered on 01/09/21at 17:21; Start 01/09/21 at 17:30; Stop 01/09/21 at 17:31; Status DC Multi-Ingredient Mouthwash/Gargle (Gi Cocktail) 20 ml STK-MED ONCE .ROUTE ; Start 01/09/21 at 17:20; Stop 01/09/21 at 17:20; Status DC Nicotine (Nicoderm Cq 21mg Patch) 1 patch DAILY TD Last administered on 01/09/21at 23:34; Start 01/09/21 at 22:10 Active Scripts Active Keflex (Cephalexin) 750 Mg Capsule 1 Cap PO BID 7 Days Ibuprofen 600 Mg Tablet 600 Mg PO TID PRN PRN Cyclobenzaprine Hcl 10 Mg Tablet 1 Tab PO TID PRN PRN Acetaminophen-Cod #4 Tablet (Acetaminophen With Codeine) 1 Each Tablet 1 Each PO Q8HRS PRN 3 Days Cyclobenzaprine Hcl 5 Mg Tablet 1 Tab PO TID PRN 5 Days NITROGLYCERIN SubLingual (Nitroglycerin) 0.4 Mg Tab.subl 0.4 Mg SL PRN Q5MIN PRN Reported Proair Hfa Inhaler (Albuterol Sulfate) 8.5 Gm Hfa.aer.ad 2 Puff INH PRN Q6HRS PRN Naproxen 500 Mg Tablet 500 Mg PO PRN PRN [potassium OTC] 2 Tab PO DAILY Children's Aspirin (Aspirin) 81 Mg Tab.chew 81 Mg PO DAILY Prozac (Fluoxetine Hcl) 40 Mg Capsule 40 Mg PO DAILY Plavix (Clopidogrel Bisulfate) 75 Mg Tablet 75 Mg PO DAILY Atenolol-Chlorthalidone 100-25 (Atenolol/Chlorthalidone) 1 Each Tablet 1 Each PO DAILY Complera Tablet (Emtricitab/Rilpivirine/Tenofov) 1 Each Tablet 1 Each PO DAILY ALLERGIES Allergies: Coded Allergies: No Known Drug Allergies (Unverified , 02/27/20) ROS Review of Systems 14 point ROS conducted with pertinent positives noted above in HPI PHYSICAL EXAM General: Alert, Oriented X3, Cooperative, mild distress HEENT: Atraumatic Lungs: Clear to auscultation Heart: Regular rate Abdomen: Soft, Other (obese ) Extremities: No edema, Normal pulses Neuro: Strength at 5/5 X4 ext, Normal tone, Sensation intact Psych/Mental Status: Mental status NL, Mood NL MUSCULOSKELETAL: No deformity VITALS Vital Signs Vital Signs Date Time Temp Pulse Resp B/P (MAP) Pulse Ox O2 Delivery O2 Flow Rate FiO2 01/10/21 06:39 116 103/69 01/10/21 06:19 98.3 18 99 Room Air LABS LABS Laboratory Tests Test 01/09/21 15:15 01/09/21 16:33 01/09/21 18:34 01/09/21 21:02 White Blood Count 12.3 x10^3/uL (4.0-11.0) Red Blood Count 4.40 x10^6/uL (3.50-5.40) Hemoglobin 14.8 g/dL (12.0-15.5) Hematocrit 42.2 % (36.0-47.0) Mean Corpuscular Volume 96 fL (79-100) Mean Corpuscular Hemoglobin 34 pg (25-35) Mean Corpuscular Hemoglobin Concent 35 g/dL (31-37) Red Cell Distribution Width 12.6 % (11.5-14.5) Platelet Count 402 x10^3/uL (140-400) Neutrophils (%) (Auto) 60 % (31-73) Lymphocytes (%) (Auto) 30 % (24-48) Monocytes (%) (Auto) 8 % (0-9) Eosinophils (%) (Auto) 1 % (0-3) Basophils (%) (Auto) 1 % (0-3) Neutrophils # (Auto) 7.4 x10^3uL (1.8-7.7) Lymphocytes # (Auto) 3.7 x10^3/uL (1.0-4.8) Monocytes # (Auto) 1.0 x10^3/uL (0.0-1.1) Eosinophils # (Auto) 0.2 x10^3/uL (0.0-0.7) Basophils # (Auto) 0.1 x10^3/uL (0.0-0.2) Sodium Level 141 mmol/L (136-145) Potassium Level 3.4 mmol/L (3.5-5.1) Chloride Level 103 mmol/L (98-107) Carbon Dioxide Level 28 mmol/L (21-32) Anion Gap 10 (6-14) Blood Urea Nitrogen 16 mg/dL (7-20) Creatinine 1.0 mg/dL (0.6-1.0) Estimated GFR (Cockcroft-Gault) 73.9 BUN/Creatinine Ratio 16 (6-20) Glucose Level 87 mg/dL (70-99) Calcium Level 8.9 mg/dL (8.5-10.1) Magnesium Level 1.7 mg/dL (1.8-2.4) Total Bilirubin 0.4 mg/dL (0.2-1.0) Aspartate Amino Transf (AST/SGOT) 21 U/L (15-37) Alanine Aminotransferase (ALT/SGPT) 29 U/L (14-59) Alkaline Phosphatase 110 U/L (46-116) Creatine Kinase 162 U/L (26-192) Creatine Kinase MB (Mass) 1.0 ng/mL (0.0-3.6) Creatine Kinase MB Relative Index 0.6 % (0-4) Troponin I Quantitative < 0.017 ng/mL (0-0.055) < 0.017 ng/mL (0-0.055) < 0.017 ng/mL (0-0.055) Total Protein 7.5 g/dL (6.4-8.2) Albumin 3.7 g/dL (3.4-5.0) Albumin/Globulin Ratio 1.0 (1.0-1.7) Urine Collection Type Unknown Urine Color Yellow Urine Clarity Clear Urine pH 7.0 Urine Specific [employer] 1.015 Urine Protein Neg (NEG-TRACE) Urine Glucose (UA) Neg mg/dL (NEG) Urine Ketones (Stick) Neg mg/dL (NEG) Urine Blood Neg (NEG) Urine Nitrite Neg (NEG) Urine Bilirubin Neg (NEG) Urine Urobilinogen Dipstick 0.2 mg/dL (0.2 mg/dL) Urine Leukocyte Esterase Neg (NEG) Urine RBC Occ /HPF (0-2) Urine WBC Occ /HPF (0-4) Urine Squamous Epithelial Cells Occ /LPF Urine Bacteria 0 /HPF (0-FEW) Urine Opiates Screen Pos (NEG) Urine Methadone Screen Neg (NEG) Urine Barbiturates Neg (NEG) Urine Phencyclidine Screen Neg (NEG) Urine Amphetamine/Methamphetamine Neg (NEG) Urine Benzodiazepines Screen Neg (NEG) Urine Cocaine Screen Neg (NEG) Urine Cannabinoids Screen Neg (NEG) Urine Ethyl Alcohol Neg (NEG) Test 01/10/21 06:37 White Blood Count 8.8 x10^3/uL (4.0-11.0) Red Blood Count 4.12 x10^6/uL (3.50-5.40) Hemoglobin 14.0 g/dL (12.0-15.5) Hematocrit 39.9 % (36.0-47.0) Mean Corpuscular Volume 97 fL (79-100) Mean Corpuscular Hemoglobin 34 pg (25-35) Mean Corpuscular Hemoglobin Concent 35 g/dL (31-37) Red Cell Distribution Width 12.8 % (11.5-14.5) Platelet Count 338 x10^3/uL (140-400) Neutrophils (%) (Auto) 71 % (31-73) Lymphocytes (%) (Auto) 20 % (24-48) Monocytes (%) (Auto) 7 % (0-9) Eosinophils (%) (Auto) 2 % (0-3) Basophils (%) (Auto) 1 % (0-3) Neutrophils # (Auto) 6.3 x10^3uL (1.8-7.7) Lymphocytes # (Auto) 1.7 x10^3/uL (1.0-4.8) Monocytes # (Auto) 0.6 x10^3/uL (0.0-1.1) Eosinophils # (Auto) 0.1 x10^3/uL (0.0-0.7) Basophils # (Auto) 0.1 x10^3/uL (0.0-0.2) Sodium Level 140 mmol/L (136-145) Potassium Level 3.2 mmol/L (3.5-5.1) Chloride Level 100 mmol/L (98-107) Carbon Dioxide Level 32 mmol/L (21-32) Anion Gap 8 (6-14) Blood Urea Nitrogen 20 mg/dL (7-20) Creatinine 1.0 mg/dL (0.6-1.0) Estimated GFR (Cockcroft-Gault) 73.9 BUN/Creatinine Ratio 20 (6-20) Glucose Level 114 mg/dL (70-99) Calcium Level 7.8 mg/dL (8.5-10.1) Total Bilirubin 0.4 mg/dL (0.2-1.0) Aspartate Amino Transf (AST/SGOT) 73 U/L (15-37) Alanine Aminotransferase (ALT/SGPT) 77 U/L (14-59) Alkaline Phosphatase 167 U/L (46-116) Troponin I Quantitative < 0.017 ng/mL (0-0.055) Total Protein 7.0 g/dL (6.4-8.2) Albumin 3.3 g/dL (3.4-5.0) Albumin/Globulin Ratio 0.9 (1.0-1.7) ASSESSMENT/PLAN Assessment/Plan 1. Chest pain, concerns for UA; AMI ruled out. EKG without significant acute changes as compared to study 03/12. Patient reports pain to be very similar to previous when she suffered AMI and underwent PCI/stent placement. Pain improved with morphine. No significant improvement with nitro. Unaffected by GI cocktail. CTA negative for acute changes 2. CAD s/p PCI/stent 7 years ago at [facility] 3. Hypertension; now controlled 4. Hypokalemia, hypomagnesemia; replace Recommendations ASA Lipids Will try dose of Toradol Secondary prevention measures Discussed further ischemic evaluation with stress test versus heart catheterization. Patient would prefer definitive evaluation with cardiac cath. R/b/a discussed with patient and she is agreeable Keep NPO Will plan for transfer to [facility] for [facility] BAYRON COLON MD 01/10/21 0746: CARDIAC CONSULT ASSESSMENT/PLAN Assessment/Plan Patient seen and examined I agree with our nurse practitioners assessment and plan. Chest pain; AMI ruled out. EKG without significant acute changes as compared to study 03/12. Patient reports pain to be very similar to previous when she suffered AMI and underwent PCI/stent placement. Pain improved with morphine but still present. No significant improvement with nitro. Unaffected by GI cocktail. CTA negative for acute changes. In the setting of recurrent chest pain with a history of coronary disease with PCI we will continue medical treatment and proceed with a cardiac catheterization to exclude progression of her underlying coronary artery disease. CAD s/p PCI/stent 7 years ago at [facility] Hypertension; now controlled Hypokalemia, hypomagnesemia; replace and monitor. Uncertain lipid level. Will check a panel. YADI ROWE APRN Jan 10, 2021 07:34 BAYRON COLON MD Jan 10, 2021 17:46
[2021-01-10] MEDS ORDERED: MAGNESIUM SULFATE 2GM 50 ML IV ONE (07:45)
[2021-01-10] MEDS ORDERED: POTASSIUM CHLORIDE 20 MEQ TABLET.ER. PO ONE (07:45)
[2021-01-10] MEDS ORDERED: KETOROLAC 15 MG/ML VIAL. IVP ONE (08:45)
[2021-01-10 08:53] VITALS: BP 103/66
[2021-01-10] MEDS ORDERED: ASPIRIN ENTERIC COATED 81 MG TABLET.DR. PO SCH (09:00)
--- NOTE | 2021-01-10 09:38 | HP ---
ADMIT DATE: 01/09/2021 ATTENDING PHYSICIAN: Dr. Tucker. CHIEF COMPLAINT: Chest pain. HISTORY OF PRESENT ILLNESS: The patient is a 40-year-old female with known history of coronary artery disease with previous UT, also HIV positive. She has been seeing Dr. Debra Felipe at the [facility]. She comes in with nonexertional sharp substernal chest pain, pain radiating to the back, began prior to coming to the ED. Nothing specific exacerbating or relieving her pain. She took some nitroglycerin without any relief. She has other risk factors including her lifestyle. She also smokes cigarettes. She drinks alcohol. She has been taking intermittent ibuprofen. In the ED, her first cardiac enzymes were negative for coronary ischemia. Because of her history of cardiac stents, she was admitted then for further management as well as serial enzymes. ALLERGIES: She has no known drug allergies. CURRENT MEDICATIONS: Include the following: Tylenol, albuterol, aspirin, atenolol, Plavix, Flexeril, combination HIV triple drug regimen, rilpivirine and tenofovir, Prozac 40 mg daily, ibuprofen p.r.n., nitroglycerin, and potassium. SOCIAL HISTORY: She is a smoker, drinking history as noted. FAMILY HISTORY: Noncontributory. REVIEW OF SYSTEMS: Significant for the localized pain. No fevers, chills, cough, COVID exposure. All other systems reviewed and turned to be negative. PHYSICAL EXAMINATION: GENERAL: When I saw her, this is a pleasant female who appears older than her stated age. VITAL SIGNS: signs showed a blood pressure 139/98, pulse is 74 and regular. She was afebrile. HEENT: Head is without trauma. Pupils are reactive. Sclerae nonicteric. Oropharynx clear. NECK: Supple, no bruits. LUNGS: Clear. CARDIOVASCULAR: Regular heart sounds, no gallops. ABDOMEN: Soft. No guarding. EXTREMITIES: Show no cyanosis or edema. NEUROLOGIC: Function focally intact. Speech is fluent. PERTINENT LABORATORY STUDIES: Admission hemoglobin 14.8 g/dL with a white count of 12,300. Electrolytes: Sodium 140, potassium 3.2 mEq. The first set of cardiac enzymes was negative for coronary ischemia. Transaminases were normal. Nonfasting blood sugar 114. CT of the chest showed no evidence of dissection or infiltrates. ASSESSMENT: 1. A 40-year-old female with substernal chest pain, quite severe. 2. Known history of coronary artery disease, 7 years ago with stents. 3. HIV infection, currently stable on triple drug regimen. 4. Noncardiac chest pain, most likely related to alcohol, tobacco, and nonsteroidals. 5. Underlying depression. 4. History of drug abuse. PLAN: 1. Observation status. 2. Serial cardiac enzymes. 3. Continue home meds. 4. Pain control. 5. Formal Cardiology consultation in the morning. ALLEGRA DR: Ajay TID: [id number] CC: DEBRA FELIPE MD
--- NOTE | 2021-01-10 10:18 | DS ---
DATE OF DISCHARGE: 01/10/2021 ATTENDING PHYSICIAN: Dr. Tucker. FINAL DISCHARGE DIAGNOSES: 1. Atypical chest pain, coronary ischemia ruled out. 2. Known history of coronary artery disease with previous stents 2013. 3. Human immunodeficiency virus infection, on current triple drug regimen. 4. History of tobacco use. 5. Essential hypertension. 6. Underlying depression and anxiety. HISTORY AND PHYSICAL: The patient is a 40-year-old female with known coronary artery disease as well as HIV infection. She presented with atypical chest pain, nonexertional substernal in nature, quite severe regarding pain medication. She was admitted for further treatment and evaluation, serial enzymes and formal Cardiology consultation. PHYSICAL EXAMINATION: Please see the dictated note. PERTINENT LABORATORY AND X-RAY STUDIES: On the database. Four sets of cardiac enzymes negative for coronary ischemia. ECG nondiagnostic. CT of the chest ruled out any acute infiltrates or blood clot. COURSE IN THE HOSPITAL: The patient was seen in consultation by Cardiology services because of the nature of the disease in her description similar to what it was 7 years ago. It was decided that she would be transferred to [facility] for anticipated formal cardiac evaluation and cardiac catheterization. Her discharge meds are unchanged. She will continue her albuterol, aspirin, atenolol, cephalexin, Plavix, Flexeril p.r.n., triple antiretroviral combination, fluoxetine. No ibuprofen for now and nitroglycerin p.r.n. Her prognosis is fair. She was discharged then from our hospital in stable condition with explicit drug and followup care. PHILIP DR: Ajay TID: [id number] CC: GEGE LPASCENCIA MD
[2021-01-10 11:39] VITALS: BP 102/68
--- NOTE | 2021-01-11 07:14 | EKG ---
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
== END 2021-01-10 13:20 | disposition short-term general hospital (02) ==
LOC: ER 15:00 → 1 SOUTH 16:36 → INTOOBSV 16:36
PROVIDERS: ADMIT Internal Medicine; ATTEND Internal Medicine
DX: R07.2 Precordial pain (principal); E83.42 Hypomagnesemia; E87.6 Hypokalemia; F32.9 Major depressive disorder, single episode, unspecified; F41.9 Anxiety disorder, unspecified; I10 Essential (primary) hypertension; F17.210 Nicotine dependence, cigarettes, uncomplicated; I25.10 Atherosclerotic heart disease of native coronary artery without angina pectoris; I25.2 Old myocardial infarction; Z21 Asymptomatic human immunodeficiency virus [HIV] infection status; Z95.5 Presence of coronary angioplasty implant and graft; Z79.899 Other long term (current) drug therapy
CPT/HCPCS: 36415; 71045; 71275; 80053; 80061; 80307; 81001; 82553; 83735; 84484; 85025; 93005; 96365; 96366; 96375; 96376; 99285; G0378; J1885; J2060; J2270; J2405; J3475; Q9967; 96374; G0379

== ENCOUNTER 2021-04-02 21:35 | Emergency (ER) | payer OTHER ==
[~2021-04-02] VITALS: Ht 157.5 cm; Wt 86.4 kg
[2021-04-02 21:45] VITALS: BP 148/72
[2021-04-02] MEDS: IV RINGERS SOLUTION,LACTATED 1,000 ML IV SCH ×2 (21:55→22:14)
[2021-04-02] MEDS ORDERED: ONDANSETRON ODT 4 MG TAB.RAPDIS ONE (21:57)
[2021-04-02] MEDS ORDERED: LIDOCAINE 2% 20 ML VIAL. IJ ONE (22:15)
[2021-04-02] MEDS ORDERED: DIPH,PERTUSS(ACELL),TET VAC/PF 0.5 ML SYRINGE. VAX IM ONE (22:15)
[2021-04-02 22:27] LABS: BASO # 0.1 x10^3/uL (0.0-0.2); BASO % 1 % (0-3); EOS # 0.1 x10^3/uL (0.0-0.7); EOS % 1 % (0-3); HEMATOCRIT 43.3 % (36.0-47.0); HEMOGLOBIN 14.8 g/dL (12.0-15.5); LYMPH # 3.6 x10^3/uL (1.0-4.8); LYMPH % 31 % (24-48); MEAN CORPUSCULAR HEMOGLOBIN 32 pg (25-35); MEAN CORPUSCULAR HGB CONC 34 g/dL (31-37); MEAN CORPUSCULAR VOLUME 94 fL (79-100); MONO # 0.9 x10^3/uL (0.0-1.1); MONO % 8 % (0-9); NEUT # 6.8 x10^3uL (1.8-7.7); NEUT % 59 % (31-73); PLATELET COUNT 381 x10^3/uL (140-400); RED BLOOD COUNT 4.63 x10^6/uL (3.50-5.40); RED CELL DISTRIBUTION WIDTH 12.9 % (11.5-14.5); WHITE BLOOD COUNT 11.6 x10^3/uL (4.0-11.0)
[2021-04-02] MEDS ORDERED: FOLIC ACID 1 MG TABLET PO ONE (22:30)
[2021-04-02] MEDS ORDERED: THIAMINE 100 MG TABLET. PO ONE (22:30)
[2021-04-02 22:37] LABS: CALCIUM 8.7 mg/dL (8.5-10.1); CREATININE 0.9 mg/dL (0.6-1.0); GFR 83.5; POTASSIUM 3.5 mmol/L (3.5-5.1)
--- NOTE | 2021-04-02 22:42 | PHYS DOC ---
Past History Past Medical History: Anxiety, CAD, HIV, Hypertension, [place] Past Medical History HIV Past Surgical History: No Surgical History Additional Past Surgical Histo: cardiac stents x2 Alcohol Use: None General Adult EDM: Chief Complaint: LACERATION/AVULSION HPI: HPI: ".. Punch out a garage window and cut my arm.." Patient is a 40 year old female who presents with above hx and complaints of lacertion to Rt forearm when she boke out a garage windiow. Pt. has 6 cm arrow shaped laceraton to Rt. forearm. Distal neurovascular is intact. Patient arm pain explored for glass. X-rays obtained of arm and no foreign body of glass detected. Patient is right-hand dominant. Patient denies other injury. Patient has past medical history of HIV, hypertension, or coronary artery disease with stents, obesity, diabetes, and tobacco and alcohol use. Patient does not remember her last tetanus. No recent travel. No specific ill contacts. Review of Systems: Review of Systems: Constitutional: Denies fever or chills Eyes: Denies change in visual acuity HENT: Denies nasal congestion or sore throat Respiratory: Denies cough or shortness of breath Cardiovascular: Denies chest pain or edema GI: Denies abdominal pain, nausea, vomiting, bloody stools or diarrhea : Denies dysuria Musculoskeletal: Denies back pain or joint pain Integument: Denies rash complains of laceration right forearm Neurologic: Denies headache, focal weakness or sensory changes Endocrine: Denies polyuria or polydipsia Lymphatic: Denies swollen glands Psychiatric: Denies depression or anxiety Family History: Family History: Noncontributory to presentation. Current Medications: Current Meds: Current Medications Medications (Trade) Dose Ordered Sig/Patrick Start Time Stop Time Status Last Admin Dose Admin Diphtheria/ Pertussis/Tetanus Vacc (ADACEL TDap SYRINGE) 0.5 ml ONCE ONCE 04/02/21 22:15 04/02/21 22:16 DC 04/02/21 22:32 0.5 ML Folic Acid (Folic Acid) 1 mg 1X ONCE 04/02/21 22:30 04/02/21 22:31 DC 04/02/21 22:31 1 MG Lactated Ringer's 1,000 ml @ 1,000 mls/hr Q1H 04/02/21 22:00 04/02/21 22:59 04/02/21 22:14 1,000 MLS/HR Lidocaine HCl (Lidocaine 2%) 20 ml 1X ONCE 04/02/21 22:15 04/02/21 22:16 DC 04/02/21 22:12 20 ML Ondansetron HCl (Zofran Odt) 4 mg STK-MED ONCE 04/02/21 21:57 04/02/21 21:58 DC Thiamine HCl (Vitamin B-1) 100 mg 1X ONCE 04/02/21 22:30 04/02/21 22:31 DC 04/02/21 22:30 100 MG Allergies: Allergies: Allergies Coded Allergies Type Severity Reaction Last Updated Verified No Known Drug Allergies 02/27/20 No Physical Exam: PE: Constitutional: Well developed, well nourished, no acute distress, non-toxic appearance. [] HENT: Normocephalic, atraumatic, bilateral external ears normal, oropharynx moist, no oral exudates, nose normal. Ear, [] Lip and nose studs Eyes: PERRLA, EOMI, conjunctiva normal, no discharge. [] Neck: Normal range of motion, no tenderness, supple, no stridor. [] Cardiovascular tachycardia:Heart rate regular rhythm, no murmur [] monitor shows a sinus tach, tachycardia Lungs & Thorax: Bilateral breath sounds to apex with scattered wheezes auscultation [] Abdomen: Bowel sounds normal, soft, no tenderness, no masses, no pulsatile masses. Obese. Skin: Warm, dry, no erythema, no rash. [] Laceration right forearm Back: No tenderness, no CVA tenderness. [] Extremities: No tenderness, no cyanosis, no clubbing, ROM intact, no edema. [] Laceration right forearm Neurologic: Alert and oriented X 3, normal motor function, normal sensory function, no focal deficits noted. [] Psychologic: Affect normal, judgement normal, mood normal. [] Current Patient Data: Labs: Laboratory Tests Test 04/02/21 22:12 White Blood Count 11.6 x10^3/uL (4.0-11.0) H Red Blood Count 4.63 x10^6/uL (3.50-5.40) Hemoglobin 14.8 g/dL (12.0-15.5) Hematocrit 43.3 % (36.0-47.0) Mean Corpuscular Volume 94 fL (79-100) Mean Corpuscular Hemoglobin 32 pg (25-35) Mean Corpuscular Hemoglobin Concent 34 g/dL (31-37) Red Cell Distribution Width 12.9 % (11.5-14.5) Platelet Count 381 x10^3/uL (140-400) Neutrophils (%) (Auto) 59 % (31-73) Lymphocytes (%) (Auto) 31 % (24-48) Monocytes (%) (Auto) 8 % (0-9) Eosinophils (%) (Auto) 1 % (0-3) Basophils (%) (Auto) 1 % (0-3) Neutrophils # (Auto) 6.8 x10^3uL (1.8-7.7) Lymphocytes # (Auto) 3.6 x10^3/uL (1.0-4.8) Monocytes # (Auto) 0.9 x10^3/uL (0.0-1.1) Eosinophils # (Auto) 0.1 x10^3/uL (0.0-0.7) Basophils # (Auto) 0.1 x10^3/uL (0.0-0.2) Vital Signs: Vital Signs Date Time Temp Pulse Resp B/P (MAP) Pulse Ox O2 Delivery O2 Flow Rate FiO2 04/02/21 21:45 98.2 139 16 148/72 (97) 98 EKG: EKG: My interpretation EKG shows sinus tachycardia 137 bpm. Anterior septal strain. No findings of acute STEMI or contralateral changes. Is an abnormal EKG however. [] Time of EKG is 2142 hrs. Radiology/Procedures: Radiology/Procedures: My interpretation of x-ray of right forearm shows defect in soft tissue. No obvious glass. [] Heart Score: C/O Chest Pain: No HEART Score for Chest Pain: HEART Score for Chest Pain Response (Comments) Value History Slighlty/Non-Suspicious 0 ECG Normal 0 Age < 45 0 Risk Factors 1 or 2 Risk Factors 1 Troponin < Normal Limit 0 Total 1 Risk Factors: Risk Factors: DM, Current or recent (<one month) smoker, HTN, HLP, family history of CAD, obesity. Risk Scores: Score 0 - 3: 2.5% MACE over next 6 weeks - Discharge Home Score 4 - 6: 20.3% MACE over next 6 weeks - Admit for Clinical Observation Score 7 - 10: 72.7% MACE over next 6 weeks - Early Invasive Strategies Course & Med Decision Making: Course & Med Decision Making Pertinent Labs and Imaging studies reviewed. (See chart for details) Procedure note= laceration repair- laceration cleaned with peroxide, saline, Betadine. Injected edge of laceration with 2% lidocaine. Reirrigated laceration copiously with normal saline under pressure with arm and range of motion and fingers and range of motion. Closed laceration with Vicryl 4 -0. 1 mattress stitch. 4 simple sutures. And 10 running sutures. Patient elected Vicryl to avoid returning to have sutures removed. Patient advised she will have a scar. Consider about scar reduction later after adequate scarring. Patient keep laceration clean and dry. Polysporin 4 times a day. Follow-up primary care. Return for any concerns. Patient declined to stay for repeat EKG or troponin. Impression: 1. Rt forearm laceration- 6cm 2. Hx. HIV 3. Hx. of CADz s/p Stents 4. Etoh [] Elías Disclaimer: Elías Disclaimer: This electronic medical record was generated, in whole or in part, using a voice recognition dictation system. Departure Departure: Referrals: GEGE PLASCENCIA MD (PCP) Elías Disclaimer This chart was dictated in whole or in part using Voice Recognition software in a busy, high-work load, and often noisy Emergency Department environment. It may contain unintended and wholly unrecognized errors or omissions. ANGELES GRAY MD Apr 02, 2021 22:42
[2021-04-02 22:49] LABS: ALBUMIN 3.8 g/dL (3.4-5.0); DIRECT BILIRUBIN 0.1 mg/dL (0.0-0.2); TOTAL BILIRUBIN 0.2 mg/dL (0.2-1.0)
--- NOTE | 2021-04-02 22:56 | RAD ---
Exam: Right forearm 2 views INDICATION: Punched a window TECHNIQUE: Frontal and lateral views of the right forearm Comparisons: None FINDINGS: Bone mineralization is normal. No acute or healed fractures. Soft tissue swelling overlying the later al mid forearm. Joint spaces are well-maintained. IMPRESSION: 1. Soft tissue irregularity at the mid forearm. 2. Triangular vague density noted at the radial aspect of the proximal forearm seen best on frontal view. Correlation with physical exam for foreign body is recommended. Electronically signed by: Iron Malik MD (04/02/2021 10:53 PM) SAM
--- NOTE | 2021-04-02 23:00 | EKG ---
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
== END 2021-04-02 23:15 | disposition home or self-care (01) ==
LOC: ER 21:35
DX: S51.811A Laceration without foreign body of right forearm, initial encounter (principal); F41.9 Anxiety disorder, unspecified; I25.10 Atherosclerotic heart disease of native coronary artery without angina pectoris; I10 Essential (primary) hypertension; I25.2 Old myocardial infarction; W25.XXXA Contact with sharp glass, initial encounter; Y93.89 Activity, other specified; Y92.89 Other specified places as the place of occurrence of the external cause; Y99.8 Other external cause status
CPT/HCPCS: 12002; 36415; 73090; 80048; 80076; 82550; 83735; 83880; 84443; 84484; 85025; 90471; 90715; 93005; 96360; 99285; J2001; J7120

== ENCOUNTER 2021-08-03 16:44 | Emergency (ER) | payer OTHER ==
[~2021-08-03] VITALS: Ht 157.5 cm; Wt 90.0 kg
[~2021-08-03 16:44] MED LIST changes: -CYCL-331 PO; +CYCL10TA19 PO
--- NOTE | 2021-08-03 17:06 | EKG ---
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
--- NOTE | 2021-08-03 17:12 | PHYS DOC ---
Past History Past Medical History: Anxiety, CAD, HIV, Hypertension, [place] Additional Past Medical Histor: cardiac stents (KHRIS DAY DO) Past Surgical History: No Surgical History, Tubal ligation, Other Additional Past Surgical Histo: cardiac stents x2 (KHRIS DAY DO) Alcohol Use: Occasionally (KHRIS DAY DO) General Adult EDM: Chief Complaint: CHEST PAIN HPI: HPI: 40-year-old female presents with chest pain. This started about 20 minutes prior to arrival while the patient was driving home. She describes as a sharp central pain that radiates into her left arm. She denies any injury or trauma to the arm recently. She does have two stents placed about 7 years ago. She has been following up with cardiology as directed. She is on Plavix and a baby aspirin did not take any of her medications today. No history of DVT or PE. She denies fever, chills, shortness of breath or diaphoresis. (KHRIS DAY DO) Review of Systems: Review of Systems: Constitutional: Denies fever or chills Eyes: Denies change in visual acuity HENT: Denies nasal congestion or sore throat Respiratory: Denies cough or shortness of breath Cardiovascular: Chest pain GI: Denies abdominal pain, nausea, vomiting, bloody stools or diarrhea : Denies dysuria Musculoskeletal: Denies back pain or joint pain Integument: Denies rash Neurologic: Denies headache, focal weakness or sensory changes Endocrine: Denies polyuria or polydipsia Lymphatic: Denies swollen glands Psychiatric: Denies depression or anxiety (KHRIS DAY DO) Current Medications: Current Meds: Current Medications Medications (Trade) Dose Ordered Sig/Patrick Start Time Stop Time Status Last Admin Dose Admin Morphine Sulfate (Morphine 4mg Syringe) 4 mg 1X ONCE 08/03/21 17:15 08/03/21 17:16 UNV Ondansetron HCl (Zofran) 4 mg 1X ONCE 08/03/21 17:15 08/03/21 17:16 UNV (KHRIS DAY DO) Allergies: Allergies: Allergies Coded Allergies Type Severity Reaction Last Updated Verified orange Allergy Mild finley skin and esophagus 08/03/21 Yes (KHRIS DAY DO) Physical Exam: PE: Constitutional: Well developed, well nourished, mild acute distress, non-toxic appearance. [] HENT: Normocephalic, atraumatic, bilateral external ears normal, oropharynx moist, no oral exudates, nose normal. [] Eyes: PERRLA, EOMI, conjunctiva normal, no discharge. [] Neck: Normal range of motion, no tenderness, supple, no stridor. [] Cardiovascular: Heart rate 105, regular rhythm, 2/6 systolic murmur [] Lungs & Thorax: Bilateral breath sounds clear to auscultation [] Abdomen: Bowel sounds normal, soft, no tenderness, no masses, no pulsatile masses. [] Skin: Warm, dry, no erythema, no rash. [] Back: No tenderness, no CVA tenderness. [] Extremities: No tenderness, no cyanosis, no clubbing, ROM intact, no edema. [] Neurologic: Alert and oriented X 3, normal motor function, normal sensory function, no focal deficits noted. [] Psychologic: Affect tearful, judgement normal, mood concerned. [] (KHRIS DAY DO) Current Patient Data: Vital Signs: Vital Signs Date Time Temp Pulse Resp B/P (MAP) Pulse Ox O2 Delivery O2 Flow Rate FiO2 08/03/21 16:50 98.1 111 20 123/42 (69) 100 Room Air (KHRIS DAY DO) EKG: EKG: [] (KHRIS DAY DO) Radiology/Procedures: Radiology/Procedures: [] Impressions: Exam: Chest one view INDICATION: Chest pain, stents TECHNIQUE: Frontal view of the chest Comparisons: 01/09/2021 FINDINGS: The cardiomediastinal silhouette and pulmonary vessels are within normal limits. The lung and pleural spaces are clear. IMPRESSION: No acute cardiopulmonary process. Electronically signed by: Iron Helton MD (08/03/2021 5:52 PM) [facility] DICTATED AND SIGNED BY: IRON EHLTON MD DATE: 08/03/21 110 CC: KHRIS DAY DO; GEGE PLASCENCIA MD ~MTH0 0 (KHRIS DAY DO) Heart Score: C/O Chest Pain: Yes HEART Score for Chest Pain: HEART Score for Chest Pain Response (Comments) Value History Slighlty/Non-Suspicious 0 ECG Nonspecific Repolarizatio 1 Age < 45 0 Risk Factors >3 Risk Factors or Hx CAD 2 Total 3 Risk Factors: Risk Factors: DM, Current or recent (<one month) smoker, HTN, HLP, family history of CAD, obesity. Risk Scores: Score 0 - 3: 2.5% MACE over next 6 weeks - Discharge Home Score 4 - 6: 20.3% MACE over next 6 weeks - Admit for Clinical Observation Score 7 - 10: 72.7% MACE over next 6 weeks - Early Invasive Strategies (KHRIS DAY DO) Course & Med Decision Making: Course & Med Decision Making Pertinent Labs and Imaging studies reviewed. (See chart for details) The patient's chest x-ray is negative for acute findings. For her chest pain have given her morphine and aspirin. Her work-up is pending. I am signing the patient out to Dr. Hodge for the manager of construction. [] (KHRIS DAY DO) Course & Med Decision Making Patient care handed off to me at checkout pending serial troponins. Laboratory analysis not concerning. CTA of the chest not concerning. EKG and troponins x2 not concerning. Vital signs significantly improved with tachycardia at discharge around 100. Bedside ultrasound with no pericardial effusion, grossly normal ejection fraction and appropriate opening and closing of valves. Patient able to take p.o. patient's exam notable and suggestive of possible etiology as musculoskeletal as she has some tenderness to palpation on chest wall with just light palpation. Discussed all findings with family. Advised on symptom control at home. Advised to follow-up on Friday with primary care physician and get an appointment same day for a post ER follow-up visit. Given work note until next Friday to allow follow-up on Friday. Gave very strict return prec autions to the emergency department. Family grateful, verbalized understanding and agreed with plan of discharge. (JOSE DE JESUS HODGE MD) Dragon Disclaimer: Dragon Disclaimer: This electronic medical record was generated, in whole or in part, using a voice recognition dictation system. (KHRIS DAY DO) Departure Departure: Impression: Primary Impression: Chest pain Disposition: HOME / SELF CARE / HOMELESS Condition: IMPROVED Referrals: GEGE PLASCENCIA MD (PCP) Patient Instructions: Chest Pain (Nonspecific) Additional Instructions: Thank you for coming into the emergency department tonight and allowing us to take care of you. Please read the attached information carefully to go over things we discussed. You can continue Tylenol, and Benadryl at home as needed as well as ice packs in the areas of tenderness on your chest wall. As discussed, your work-up and imaging today were reassuring but that does not mean that something is not going on that needs to be monitored, and reevaluated and followed. It is very important to follow-up Friday with your primary care physician to discuss your ED visit and need for further evaluation and treatment. You are given a work note until next Friday to allow you to follow- up on Friday. Please be sure to call first thing Friday morning and try to get in same day. Please come back to the emergency department immediately with any of the new or concerning symptoms that we discussed. KHRIS DAY DO Aug 03, 2021 17:12 JOSE DE JESUS HODGE MD Aug 03, 2021 22:06
[2021-08-03] MEDS ORDERED: MORPHINE SULFATE 4 MG/ML DISP.SYRIN. IV ONE ×2 (17:15→18:00)
[2021-08-03] MEDS ORDERED: ONDANSETRON PF 4 MG/2 ML VIAL. IVP ONE (17:15)
[2021-08-03] MEDS ORDERED: IV NORMAL SALINE 1,000ML 1,000 ML IV ONE (17:15)
[2021-08-03] MEDS ORDERED: ASPIRIN CHEWABLE 81 MG TABLET. PO ONE (17:15)
[2021-08-03 17:43] LABS: BASO # 0.1 x10^3/uL (0.0-0.2); BASO % 1 % (0-3); EOS # 0.1 x10^3/uL (0.0-0.7); EOS % 1 % (0-3); HEMATOCRIT 43.9 % (36.0-47.0); HEMOGLOBIN 15.2 g/dL (12.0-15.5); LYMPH # 2.7 x10^3/uL (1.0-4.8); LYMPH % 21 % (24-48); MEAN CORPUSCULAR HEMOGLOBIN 31 pg (25-35); MEAN CORPUSCULAR HGB CONC 35 g/dL (31-37); MEAN CORPUSCULAR VOLUME 89 fL (79-100); MONO # 0.9 x10^3/uL (0.0-1.1); MONO % 7 % (0-9); NEUT # 9.2 x10^3uL (1.8-7.7); NEUT % 71 % (31-73); PLATELET COUNT 400 x10^3/uL (140-400); RED BLOOD COUNT 4.94 x10^6/uL (3.50-5.40); RED CELL DISTRIBUTION WIDTH 14.3 % (11.5-14.5)
[2021-08-03 17:54] LABS: CREATININE 0.7 mg/dL (0.6-1.0); GFR 111.6; POTASSIUM 4.2 mmol/L (3.5-5.1)
--- NOTE | 2021-08-03 17:54 | RAD ---
Exam: Chest one view INDICATION: Chest pain, stents TECHNIQUE: Frontal view of the chest Comparisons: 01/09/2021 FINDINGS: The cardiomediastinal silhouette and pulmonary vessels are within normal limits. The lung and pleural spaces are clear. IMPRESSION: No acute cardiopulmonary process. Electronically signed by: Iron Malik MD (08/03/2021 5:52 PM) [facility]
[2021-08-03 18:02] LABS: ALBUMIN 3.3 g/dL (3.4-5.0); ALBUMIN/GLOBULIN RATIO 0.8 (1.0-1.7); TOTAL BILIRUBIN 0.3 mg/dL (0.2-1.0); TOTAL PROTEIN 7.2 g/dL (6.4-8.2)
[2021-08-03 19:03] LABS: BILIRUBIN,URINE NEG (NEG); CLARITY,URINE CLEAR; COLOR,URINE YELLOW; GLUCOSE,URINE NEG (NEG)
[2021-08-03 19:04] LABS: BACTERIA,URINE 0 /HPF (0-FEW); NITRITE,URINE NEG (NEG); SQUAMOUS EPITHELIAL CELL,UR FEW /LPF; UROBILINOGEN,URINE 0.2 mg/dL (0.2 mg/dL); WBC,URINE 0 /HPF (0-4)
[2021-08-03] MEDS ORDERED: IOHEXOL 350 MG/ML 100 ML VIAL. IV ONE (19:15)
[2021-08-03 20:04] LABS: INFLUENZA A PATIENT NEGATIVE (NEGATIVE); INFLUENZA B PATIENT NEGATIVE (NEGATIVE)
[2021-08-03] MEDS: NITROGLYCERIN SUBLINGUAL 0.4 MG BOTTLE OF 25. SL PRN ×3 (20:07→20:18)
--- NOTE | 2021-08-03 20:23 | RAD ---
CTA scan of the Chest with Contrast (Pulmonary Embolism protocol) 08/03/2021 Clinical History: Chest pain. Shortness of breath. Technique: After the intravenous administration of 100 cc of Omnipaque 350, contiguous, 0.625 mm axia l sections were obtained through the chest. 2 mm axial and 3D MIP coronal and sagittal reconstructed images were obtained. One or more of the following individualized dose reduction techniques were utilized for this study: 1. Automated exposure control. 2. Adjustment of the mA and/or kV according to patient size. 3. Use of iterative reconstruction technique. Findings: Comparison study is dated 01/09/2021. No filling defect is seen within the major branches of either pulmonary artery. There is no CT eviden ce of pulmonary embolism. The heart and thoracic aorta are within normal limits. Minimal dependent subsegmental atelectasis is seen involving both lungs. No area of consolidation, pl eural effusion or pneumothorax is seen. Impression: There is no CT evidence of pulmonary embolism. Electronically signed by: Nacho Nice MD (08/03/2021 8:21 PM) [id number]
[2021-08-03] MEDS ORDERED: oxyCODONE/APAP 5/325 1 TAB TABLET ONE (22:12)
[2021-08-03] MEDS ORDERED: oxyCODONE/APAP 5/325 1 TAB TABLET PO ONE (22:15)
[2021-08-03 22:18] VITALS: BP 141/87
== END 2021-08-03 22:25 | disposition home or self-care (01) ==
LOC: ER 16:44
DX: R07.89 Other chest pain (principal); F41.9 Anxiety disorder, unspecified; I25.10 Atherosclerotic heart disease of native coronary artery without angina pectoris; I10 Essential (primary) hypertension; I25.2 Old myocardial infarction; Z20.822 Contact with and (suspected) exposure to COVID-19; Z79.02 Long term (current) use of antithrombotics/antiplatelets; Z91.018 Allergy to other foods
CPT/HCPCS: 36415; 71045; 71275; 80053; 81001; 83735; 84484; 85025; 87428; 93005; 96361; 96374; 96375; 96376; 99285; C9803; J2270; J2405; J3010; J7030; Q9967; U0003

== ENCOUNTER 2021-09-25 22:11 | Observation (INO) | payer OTHER ==
[~2021-09-25] VITALS: Ht 157.5 cm; Wt 109.8 kg
[~2021-09-25 22:11] MED LIST changes: -ACET-1871 PO; +ACET1TAB63 PO
[2021-09-25] MEDS ORDERED: MORPHINE SULFATE 4 MG/ML DISP.SYRIN. IV ONE (22:45)
[2021-09-25] MEDS ORDERED: ONDANSETRON PF 4 MG/2 ML VIAL. IVP ONE (22:45)
[2021-09-25] MEDS ORDERED: NITROGLYCERIN SUBLINGUAL 0.4 MG BOTTLE OF 25. SL PRN (22:45)
[2021-09-25] MEDS ORDERED: MORPHINE SULFATE 4 MG/ML DISP.SYRIN. ONE (22:46)
[2021-09-25 22:47] LABS: BASO # 0.1 x10^3/uL (0.0-0.2); BASO % 1 % (0-3); EOS # 0.1 x10^3/uL (0.0-0.7); EOS % 2 % (0-3); LYMPH # 2.5 x10^3/uL (1.0-4.8); LYMPH % 33 % (24-48); MEAN CORPUSCULAR HEMOGLOBIN 31 pg (25-35); MEAN CORPUSCULAR HGB CONC 34 g/dL (31-37); MEAN CORPUSCULAR VOLUME 90 fL (79-100); MONO # 0.7 x10^3/uL (0.0-1.1); MONO % 9 % (0-9); NEUT # 4.2 x10^3uL (1.8-7.7); NEUT % 55 % (31-73); PLATELET COUNT 261 x10^3/uL (140-400); RED BLOOD COUNT 4.56 x10^6/uL (3.50-5.40); RED CELL DISTRIBUTION WIDTH 13.9 % (11.5-14.5); WHITE BLOOD COUNT 7.6 x10^3/uL (4.0-11.0)
--- NOTE | 2021-09-25 22:47 | PHYS DOC ---
Past History Past Medical History: Anxiety, CAD, HIV, Hypertension, [place] Additional Past Medical Histor: cardiac stents Past Surgical History: Cholecystectomy, , Tubal ligation, Other Additional Past Surgical Histo: heart stent Alcohol Use: Occasionally General Adult EDM: Chief Complaint: CHEST PAIN HPI: HPI: 40-year-old female presents with chest pain. She states that she been having chest pain for 3 days. It got worse tonight. She rates it a 7 out of 10 central pressure with radiation to her left arm. She normally takes nitroglycerin on a somewhat regular basis. She took the last one at 4 AM and she is not out of them. Patient states she had a heart attack at the age of 33. She has not had one since that time. She also admits to a history of asthma. She denies fever or chills. Review of Systems: Review of Systems: Constitutional: Denies fever or chills Eyes: Denies change in visual acuity HENT: Denies nasal congestion or sore throat Respiratory: Denies cough or shortness of breath Cardiovascular: Denies chest pain or edema GI: Denies abdominal pain, nausea, vomiting, bloody stools or diarrhea : Denies dysuria Musculoskeletal: Denies back pain or joint pain Integument: Denies rash Neurologic: Denies headache, focal weakness or sensory changes Endocrine: Denies polyuria or polydipsia Lymphatic: Denies swollen glands Psychiatric: Denies depression or anxiety Current Medications: Current Meds: Current Medications Medications (Trade) Dose Ordered Sig/Patrick Start Time Stop Time Status Last Admin Dose Admin Morphine Sulfate (Morphine 4mg Syringe) 4 mg 1X ONCE 09/25/21 22:45 09/25/21 22:46 UNV Nitroglycerin (Nitrostat) 0.4 mg PRN Q5MIN PRN 09/25/21 22:45 UNV Ondansetron HCl (Zofran) 4 mg 1X ONCE 09/25/21 22:45 09/25/21 22:46 UNV Allergies: Allergies: Allergies Coded Allergies Type Severity Reaction Last Updated Verified orange Allergy Mild finley skin and esophagus 08/03/21 Yes Physical Exam: PE: Constitutional: Well developed, well nourished, obese, no acute distress, non- toxic appearance. [] HENT: Normocephalic, atraumatic, bilateral external ears normal, oropharynx moist, no oral exudates, nose normal. [] Eyes: PERRLA, EOMI, conjunctiva normal, no discharge. [] Neck: Normal range of motion, no tenderness, supple, no stridor. [] Cardiovascular: Heart rate 108, regular rhythm, no murmur [] Lungs & Thorax: Bilateral breath sounds clear to auscultation [] Abdomen: Bowel sounds normal, soft, no tenderness, no masses, no pulsatile masses. [] Skin: Warm, dry, no erythema, no rash. [] Back: No tenderness, no CVA tenderness. [] Extremities: No tenderness, no cyanosis, no clubbing, ROM intact, no edema. [] Neurologic: Alert and oriented X 3, normal motor function, normal sensory fu nction, no focal deficits noted. [] Psychologic: Affect normal, judgement normal, mood anxious. [] Current Patient Data: Vital Signs: Vital Signs Date Time Temp Pulse Resp B/P (MAP) Pulse Ox O2 Delivery O2 Flow Rate FiO2 09/25/21 22:31 88 28 156/87 (110) 99 Room Air 09/25/21 22:19 97.8 EKG: EKG: Sinus rhythm, rate 108, normal axis, no ST elevation or depression. [] Radiology/Procedures: Radiology/Procedures: [] Impressions: Study: CT CHEST WITH CONTRAST - PULMONARY ANGIOGRAM History: Tachycardia, chest pain and tightness Comparison: CT chest 08/03/2021 and 01/09/2021 Technique: Helical CT of the chest performed after the administration of 100 mL Omnipaque 350 intravenous contrast and timed for angiographic evaluation of the pulmonary arteries per PE protocol. Coronal and sagittal 3D MIP reformations were obtained. One or more of the following individualized dose reduction techniques were utilized for this examination: 1. Automated exposure control 2. Adjustment of the mA and/or kV according to patient size 3. Use of iterative reconstruction technique. Findings: Pulmonary Arteries: Contrast bolus is adequate. There is no acute pulmonary embolism. Heart/Systemic Vasculature: The heart is normal in size. No pericardial effusion. Thoracic aorta is normal in caliber. No aortic dissection. Mediastinum: No lymphadenopathy. Lungs: Unchanged 5 mm nodule in the lingula along the fissure. The lungs are otherwise clear. No pleural effusion or pneumothorax. Neck/Axilla/Body Wall: No axillary lymphadenopathy. Upper Abdomen: The upper abdomen is normal. Bones: No acute osseous abnormality. Mild degenerative disc disease. Miscellaneous: None. IMPRESSION: 1. No acute pulmonary embolism. 2. Unchanged 5 mm nodule in the lingula along the fissure, stable from 01/09/2021. Electronically signed by: Belkis Gonzalez MD (09/25/2021 11:53 PM) [facility] DICTATED AND SIGNED BY: BELKIS GONZALEZ MD DATE: 09/25/21 0098 CC: KHRIS DAY DO; GEGE PLASCENCIA MD ~ Heart Score: C/O Chest Pain: Yes HEART Score for Chest Pain: HEART Score for Chest Pain Response (Comments) Value History Moderately Suspicious 1 ECG Normal 0 Age < 45 0 Risk Factors >3 Risk Factors or Hx CAD 2 Troponin < Normal Limit 0 Total 3 Risk Factors: Risk Factors: DM, Current or recent (<one month) smoker, HTN, HLP, family history of CAD, obesity. Risk Scores: Score 0 - 3: 2.5% MACE over next 6 weeks - Discharge Home Score 4 - 6: 20.3% MACE over next 6 weeks - Admit for Clinical Observation Score 7 - 10: 72.7% MACE over next 6 weeks - Early Invasive Strategies Course & Med Decision Making: Course & Med Decision Making Pertinent Labs and Imaging studies reviewed. (See chart for details) The patient's EKG is significant for tachycardia with a rate of 108. No ST elevation. The patient's labs are unremarkable. Her troponin is negative. Her chest x-ray is negative for acute findings. I did do a CTA of the chest given her discomfort and tachycardia. It is negative for pulmonary embolus. The patient's been given multiple doses of pain medication though I do not know what we are treating. I will admit her to the hospital for further management. I spoke with Dr. Tucker, hospitalist and he has accepted the patient for observation admission. Patient is in agreement. [] Dragon Disclaimer: Dragkathleen Disclaimer: This electronic medical record was generated, in whole or in part, using a voice recognition dictation system. Departure Departure: Impression: Primary Impression: Chest pain Disposition: ADMITTED INPATIENT Admitting Physician: Estuardo Tucker Condition: STABLE Referrals: GEGE PLASCENCIA MD (PCP) KHRIS DAY DO Sep 25, 2021 22:47
[2021-09-25 22:55] LABS: CREATININE 0.5 mg/dL (0.6-1.0); GFR 164.5; POTASSIUM 4.8 mmol/L (3.5-5.1)
--- NOTE | 2021-09-25 22:57 | RAD ---
Study: XR CHEST 1V Indication: Chest pain. Comparison: 08/03/2021 Findings: Favored summation artifact accounting for haziness at the left lower lung approaching the costophreni c angle. Suspected mild basilar atelectasis. No lobar consolidation, pleural effusion or pneumothorax . Unremarkable cardiomediastinal silhouette and nanci. Impression: No acute radiographic abnormality of the chest. No relevant change from the 08/03/2021 comparison. Electronically signed by: SERENE JIMÉNEZ MD (09/25/2021 10:54 PM) [facility]
[2021-09-25 23:01] LABS: ALBUMIN/GLOBULIN RATIO 0.9 (1.0-1.7); TOTAL BILIRUBIN 0.3 mg/dL (0.2-1.0); TOTAL PROTEIN 6.4 g/dL (6.4-8.2)
[2021-09-25] MEDS ORDERED: IV NORMAL SALINE 1,000ML 1,000 ML IV ONE (23:15)
--- NOTE | 2021-09-25 23:23 | EKG ---
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
[2021-09-25] MEDS ORDERED: CONTRAST GIVEN. MC PRN (23:30)
[2021-09-25] MEDS ORDERED: IOHEXOL 350 MG/ML 100 ML VIAL. IV ONE (23:30)
[2021-09-25] MEDS ORDERED: HYDROmorphone PF 1 MG/ML DISP.SYRIN ONE (23:43)
[2021-09-25] MEDS ORDERED: HYDROmorphone PF 1 MG/ML DISP.SYRIN IVP ONE (23:45)
--- NOTE | 2021-09-25 23:56 | RAD ---
Study: CT CHEST WITH CONTRAST - PULMONARY ANGIOGRAM History: Tachycardia, chest pain and tightness Comparison: CT chest 08/03/2021 and 01/09/2021 Technique: Helical CT of the chest performed after the administration of 100 mL Omnipaque 350 intrav enous contrast and timed for angiographic evaluation of the pulmonary arteries per PE protocol. Coron al and sagittal 3D MIP reformations were obtained. One or more of the following individualized dose reduction techniques were utilized for this examinat ion: 1. Automated exposure control 2. Adjustment of the mA and/or kV according to patient size 3. Use of iterative reconstruction technique. Findings: Pulmonary Arteries: Contrast bolus is adequate. There is no acute pulmonary embolism. Heart/Systemic Vasculature: The heart is normal in size. No pericardial effusion. Thoracic aorta is n ormal in caliber. No aortic dissection. Mediastinum: No lymphadenopathy. Lungs: Unchanged 5 mm nodule in the lingula along the fissure. The lungs are otherwise clear. No pleu ral effusion or pneumothorax. Neck/Axilla/Body Wall: No axillary lymphadenopathy. Upper Abdomen: The upper abdomen is normal. Bones: No acute osseous abnormality. Mild degenerative disc disease. Miscellaneous: None. IMPRESSION: 1. No acute pulmonary embolism. 2. Unchanged 5 mm nodule in the lingula along the fissure, stable from 01/09/2021. Electronically signed by: Belkis Gonzalez MD (09/25/2021 11:53 PM) [facility]
[2021-09-26] MEDS ORDERED: ONDANSETRON PF 4 MG/2 ML VIAL. IVP PRN (00:15)
[2021-09-26] MEDS ORDERED: diphenhydrAMINE 50 MG/ML VIAL IVP ONE (00:15)
[2021-09-26] MEDS ORDERED: ACETAMINOPHEN 325 MG TABLET PO PRN (00:15)
[2021-09-26] MEDS ORDERED: NITROGLYCERIN SUBLINGUAL 0.4 MG BOTTLE OF 25. SL PRN (00:15)
[2021-09-26] MEDS: MORPHINE SULFATE 2 MG/ML DISP.SYRIN. IVP PRN ×3 (00:42→09:24)
[2021-09-26 01:01] LABS: BARBITURATES NEG (NEG); BENZODIAZEPINES NEG (NEG); CANNABINOIDS NEG (NEG); COCAINE NEG (NEG); METHADONE NEG (NEG); OPIATES POS (NEG); PHENCYCLIDINE NEG (NEG)
[2021-09-26 01:02] LABS: BACTERIA,URINE 0 /HPF (0-FEW); CLARITY,URINE CLEAR; COLOR,URINE YELLOW; GLUCOSE,URINE NEG (NEG); NITRITE,URINE NEG (NEG); RBC,URINE 0 /HPF (0-2); SQUAMOUS EPITHELIAL CELL,UR FEW /LPF; UROBILINOGEN,URINE 0.2 mg/dL (0.2 mg/dL); WBC,URINE RARE /HPF (0-4)
[2021-09-26 01:06] LABS: AMPHETAMINE/METHAMPHETAMINE NEG (NEG)
[2021-09-26 01:21] VITALS: BP 131/91
[2021-09-26] MEDS ORDERED: NICOTINE 21MG PATCH. TD PRN (01:30)
--- NOTE | 2021-09-26 03:52 | EKG ---
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
[2021-09-26 07:19] VITALS: BP 135/105
--- NOTE | 2021-09-26 08:17 | PDOC2 ---
YADI ROWE MECHANICAL MAINTENANCE ENGINEER 09/26/21 0817: CARDIAC CONSULT DATE OF CONSULT DOS: DATE: 09/26/21 TIME: 08:14 REASON FOR CONSULT Reason for Consult Chest pain, CAD REFERRING PHYSICIAN Referring Physician Dr. Tucker SOURCE Source: Chart review, Patient HPI History of Present Illness This is a 40 yo female who presented secondary to chest pain. Patient reports experiencing pressure in the central and left chest nightly for the last 4 night. Associated with pain in her left arm and upper back. Pain does not generally occur during the day, just at night. Has been taking nitro, which does improved the pain. Left chest is sore and very tender upon palpation. Patient has a history of CAD s/p PCI/stent to the LCX. Patient was seen by our service last December for chest pain and underwent cardiac catheterization at that time which revealed one vessel disease of the LCx with mid 50-60% stenosis prior to a patent distal stent. Patient reports compliance with ASA and Plavix the rapy, although she did run out of Plavix 3 days ago. PAST MEDICAL HISTORY Cardiovascular: CAD, HTN Pulmonary: Asthma Psych: Anxiety Musculoskeletal: Other (chronic pain) PAST SURGICAL HISTORY Past Surgical History: Other (PCI/stent ) FAMILY HISTORY Family History: Heart Disease SOCIAL HISTORY Smoke: <1 pack per day ALCOHOL: occassional Drugs: None Lives: with Family CURRENT MEDICATIONS Current Medications Current Medications Nitroglycerin (Nitrostat) 0.4 mg PRN Q5MIN PRN SL CHEST PAIN Last administered on 09/25/21at 22:48; Start 09/25/21 at 22:45 Morphine Sulfate (Morphine 4mg Syringe) 4 mg 1X ONCE IV Last administered on 09/25/21at 22:51; Start 09/25/21 at 22:45; Stop 09/25/21 at 22:46; Status DC Ondansetron HCl (Zofran) 4 mg 1X ONCE IVP Last administered on 09/25/21at 22:50; Start 09/25/21 at 22:45; Stop 09/25/21 at 22:46; Status DC Morphine Sulfate (Morphine 4mg Syringe) 4 mg STK-MED ONCE .ROUTE ; Start 09/25/21 at 22:46; Stop 09/25/21 at 22:46; Status DC Lorazepam (Ativan Inj) 1 mg 1X ONCE IVP Last administered on 09/25/21at 23:21; Start 09/25/21 at 23:15; Stop 09/25/21 at 23:18; Status DC Sodium Chloride 1,000 ml @ 1,000 mls/hr 1X ONCE IV Last administered on 09/25/21at 23:21; Start 09/25/21 at 23:15; Stop 09/26/21 at 00:14; Status DC Lorazepam (Ativan Inj) 2 mg STK-MED ONCE .ROUTE ; Start 09/25/21 at 23:18; Stop 09/25/21 at 23:18; Status DC Iohexol (Omnipaque 350 Mg/ml) 100 ml 1X ONCE IV Last administered on 09/25/21at 23:36; Start 09/25/21 at 23:30; Stop 09/25/21 at 23:31; Status DC Info (Do NOT chart on this entry -- for MONITORING) 1 each PRN DAILY PRN MC SEE COMMENTS; Start 09/25/21 at 23:30; Stop 09/27/21 at 23:29 Hydromorphone HCl (Dilaudid) 1 mg 1X ONCE IVP Last administered on 09/25/21at 23:45; Start 09/25/21 at 23:45; Stop 09/25/21 at 23:46; Status DC Hydromorphone HCl (Dilaudid) 1 mg STK-MED ONCE .ROUTE ; Start 09/25/21 at 23:43; Stop 09/25/21 at 23:43; Status DC Lorazepam (Ativan Inj) 2 mg 1X ONCE IVP Last administered on 09/26/21at 00:13; Start 09/26/21 at 00:15; Stop 09/26/21 at 00:16; Status DC Diphenhydramine HCl (Benadryl) 25 mg 1X ONCE IVP Last administered on 09/26/21at 00:13; Start 09/26/21 at 00:15; Stop 09/26/21 at 00:16; Status DC Ondansetron HCl (Zofran) 4 mg PRN Q4HRS PRN IVP NAUSEA/VOMITING Last administered on 09/26/21at 04:18; Start 09/26/21 at 00:15; Stop 09/27/21 at 00:14 Morphine Sulfate (Morphine 2mg Syringe) 2 mg PRN Q2HR PRN IVP PAIN Last administered on 09/26/21at 05:00; Start 09/26/21 at 00:15; Stop 09/27/21 at 00:14 Acetaminophen (Tylenol) 650 mg PRN Q4HRS PRN PO FEVER > 100.3'F; Start 09/26/21 at 00:15; Stop 09/27/21 at 00:14 Nitroglycerin (Nitrostat) 0.4 mg PRN Q5MIN PRN SL CHEST PAIN Last administered on 09/26/21at 01:34; Start 09/26/21 at 00:15; Stop 09/26/21 at 07:10; Status DC Nicotine (Nicoderm Cq 21mg Patch) 1 patch PRN DAILY PRN TD SMOKING CESSATION Last administered on 09/26/21at 01:35; Start 09/26/21 at 01:30 Active Scripts Active Ibuprofen 600 Mg Tablet 600 Mg PO TID PRN PRN NITROGLYCERIN SubLingual (Nitroglycerin) 0.4 Mg Tab.subl 0.4 Mg SL PRN Q5MIN PRN Reported Proair Hfa Inhaler (Albuterol Sulfate) 8.5 Gm Hfa.aer.ad 2 Puff INH PRN Q6HRS PRN Naproxen 500 Mg Tablet 500 Mg PO PRN PRN [potassium OTC] 2 Tab PO DAILY Children's Aspirin (Aspirin) 81 Mg Tab.chew 81 Mg PO DAILY Prozac (Fluoxetine Hcl) 40 Mg Capsule 40 Mg PO DAILY Plavix (Clopidogrel Bisulfate) 75 Mg Tablet 75 Mg PO DAILY Atenolol-Chlorthalidone 100-25 (Atenolol/Chlorthalidone) 1 Each Tablet 1 Each PO DAILY Complera Tablet (Emtricitab/Rilpivirine/Tenofov) 1 Each Tablet 1 Each PO DAILY ALLERGIES Allergies: Coded Allergies: orange (Verified Allergy, Mild, finley skin and esophagus, 08/03/21) ROS Review of Systems 14 point ROS conducted with pertinent positives noted above in HPI PHYSICAL EXAM Physical Exam General: Alert, Oriented X3, Cooperative, mild distress HEENT: Atraumatic Lungs: Clear to auscultation, left chest tenderness upon palpation Heart: Regular rate Abdomen: Soft, Other (obese ) Extremities: No edema, Normal pulses Neuro: Strength at 5/5 X4 ext, Normal tone, Sensation intact Psych/Mental Status: Mental status NL, Mood NL MUSCULOSKELETAL: No deformity VITALS Vital Signs Vital Signs Date Time Temp Pulse Resp B/P (MAP) Pulse Ox O2 Delivery O2 Flow Rate FiO2 09/26/21 07:19 98.0 114 22 135/105 (115) 98 Room Air LABS LABS Laboratory Tests Test 09/25/21 22:30 09/26/21 00:15 09/26/21 00:17 09/26/21 01:35 White Blood Count 7.6 x10^3/uL (4.0-11.0) Red Blood Count 4.56 x10^6/uL (3.50-5.40) Hemoglobin 14.0 g/dL (12.0-15.5) Hematocrit 41.0 % (36.0-47.0) Mean Corpuscular Volume 90 fL (79-100) Mean Corpuscular Hemoglobin 31 pg (25-35) Mean Corpuscular Hemoglobin Concent 34 g/dL (31-37) Red Cell Distribution Width 13.9 % (11.5-14.5) Platelet Count 261 x10^3/uL (140-400) Neutrophils (%) (Auto) 55 % (31-73) Lymphocytes (%) (Auto) 33 % (24-48) Monocytes (%) (Auto) 9 % (0-9) Eosinophils (%) (Auto) 2 % (0-3) Basophils (%) (Auto) 1 % (0-3) Neutrophils # (Auto) 4.2 x10^3uL (1.8-7.7) Lymphocytes # (Auto) 2.5 x10^3/uL (1.0-4.8) Monocytes # (Auto) 0.7 x10^3/uL (0.0-1.1) Eosinophils # (Auto) 0.1 x10^3/uL (0.0-0.7) Basophils # (Auto) 0.1 x10^3/uL (0.0-0.2) Sodium Level 140 mmol/L (136-145) Potassium Level 4.8 mmol/L (3.5-5.1) Chloride Level 105 mmol/L (98-107) Carbon Dioxide Level 24 mmol/L (21-32) Anion Gap 11 (6-14) Blood Urea Nitrogen 10 mg/dL (7-20) Creatinine 0.5 mg/dL (0.6-1.0) Estimated GFR (Cockcroft-Gault) 164.5 BUN/Creatinine Ratio 20 (6-20) Glucose Level 95 mg/dL (70-99) Calcium Level 9.0 mg/dL (8.5-10.1) Total Bilirubin 0.3 mg/dL (0.2-1.0) Aspartate Amino Transf (AST/SGOT) 46 U/L (15-37) Alanine Aminotransferase (ALT/SGPT) 57 U/L (14-59) Alkaline Phosphatase 109 U/L (46-116) Troponin I High Sensitivity 11 ng/L (4-50) 14 ng/L (4-50) Total Protein 6.4 g/dL (6.4-8.2) Albumin 3.0 g/dL (3.4-5.0) Albumin/Globulin Ratio 0.9 (1.0-1.7) SARS-CoV-2 Antigen (Rapid) Negative (NEGATIVE) Urine Collection Type Unknown Urine Color Yellow Urine Clarity Clear Urine pH 7.0 Urine Specific Walsh 1.015 Urine Protein Neg (NEG-TRACE) Urine Glucose (UA) Neg mg/dL (NEG) Urine Ketones (Stick) Neg mg/dL (NEG) Urine Blood Neg (NEG) Urine Nitrite Neg (NEG) Urine Bilirubin Neg (NEG) Urine Urobilinogen Dipstick 0.2 mg/dL (0.2 mg/dL) Urine Leukocyte Esterase Neg (NEG) Urine RBC 0 /HPF (0-2) Urine WBC Rare /HPF (0-4) Urine Squamous Epithelial Cells Few /LPF Urine Bacteria 0 /HPF (0-FEW) Urine Opiates Screen Pos (NEG) Urine Methadone Screen Neg (NEG) Urine Barbiturates Neg (NEG) Urine Phencyclidine Screen Neg (NEG) Urine Amphetamine/Methamphetamine Neg (NEG) Urine Benzodiazepines Screen Neg (NEG) Urine Cocaine Screen Neg (NEG) Urine Cannabinoids Screen Neg (NEG) Urine Ethyl Alcohol Neg (NEG) Test 09/26/21 04:30 Troponin I High Sensitivity 13 ng/L (4-50) HEART CATH Heart Cath Coronary angiography: LM: Large caliber vessel with normal angiographic appearance LAD: Large caliber vessel with a mid 30% stenosis. D1: Small caliber vessel with mild luminal irregularities. LCX: Moderate caliber non-dominant vessel with mid 50-60% stenosis prior to a patent distal stent. The distal LCx is small in caliber. OM1: Moderate caliber vessel with mild luminal irregularities. RCA: Moderate caliber vessel with mild luminal irregularities. RPDA: Very small caliber vessel with mild luminal irregularities. CLOSURE: At case completion the right radial sheath was removed and a Terumo radial band was applied with 11 mL of air. Hemostasis was achieved. COMPLICATIONS: No acute complications noted Conclusion 1. Normal left sided filling pressures. 2. Normal LV systolic function. EF 55% 3. One vessel coronary disease. Recommendations Aggressive Medical Therapy DATE: 01/11/21 [id number] ASSESSMENT/PLAN Assessment/Plan 1. Chest pain, mixed features; AMI ruled out. EKG without significant acute changes as compared to previous 2. CAD s/p PCI/stent to the LCX. [facility] 01/10 showed one-vessel disease with mid 50-60% stenosis of the LCx prior to a patent distal stent. 3. Hypertension; controlled overall 4. Sinus tachycardia 5. Obesity 6. HIV 7. Chronic back pain 8. Tobaccosim; discussed/encouraged cessation 9. ? Drug seeking behavior- frequently asking for Iv pain meds, specifically Dilaudid Recommendations Resume secondary prevention Risk stratification modification Probable outpatient ischemic evaluation. Will d/w primary television news anchor RITA RUCKER MD 09/26/214: CARDIAC CONSULT ASSESSMENT/PLAN Assessment/Plan Pt. seen and examined. 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 Her pain appears to be mostly MSK but given her risk factors and prior CAD cannot rule out ischemic origin. She has significant pain despite dilaudid. Negative PE study. EKG unrevealing and troponin is negative. I had a long discussion with patient that this is likely not cardiac but we cannot be definitive unless a repeat coronary angiogram is completed. I suggested conservative mgmt with anxiolytics, msk pain meds and antispasmotics but patient is adamant for a cardiac cath. We discussed r/b/a, she wishes to proceed. Will transfer to [place] and plan for this in the morning. Thanks YADI ROWE APRN Sep 26, 2021 08:17 RITA RUCKER MD Sep 26, 2021 22:24
[2021-09-26] MEDS ORDERED: CHLORTHALIDONE 25 MG TABLET PO SCH (09:00)
[2021-09-26] MEDS ORDERED: ASPIRIN CHEWABLE 81 MG TABLET. PO SCH (09:00)
[2021-09-26] MEDS ORDERED: CLOPIDOGREL BISULFATE 75 MG TABLET PO SCH (09:00)
[2021-09-26] MEDS ORDERED: CHLORTHALIDONE PO SCH (09:00)
[2021-09-26] MEDS ORDERED: POTASSIUM OTC PO SCH (09:00)
[2021-09-26] MEDS ORDERED: ATENOLOL PO SCH (09:00)
[2021-09-26] MEDS ORDERED: ATENOLOL 50 MG TABLET PO SCH (09:00)
[2021-09-26] MEDS: NITROGLYCERIN SUBLINGUAL 0.4 MG BOTTLE OF 25. SL PRN ×2 (09:23→10:53)
[2021-09-26] MEDS: HYDROmorphone PF 1 MG/ML DISP.SYRIN IVP PRN ×3 (10:52→17:36)
[2021-09-26 11:00] VITALS: BP 123/87
--- NOTE | 2021-09-26 14:06 | EKG ---
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
[2021-09-26 15:10] VITALS: BP 138/95
--- NOTE | 2021-09-26 15:37 | HP ---
DATE OF SERVICE: 09/26/2021 ADMIT DATE: 09/26/2021 HISTORY OF PRESENT ILLNESS: The patient is a 40-year-old -[place] female patient who presented to the Emergency Room of [facility] with a complaint of chest pain. Apparently, she had been having her chest pain for the last 4 nights. She described it as a pressure in the center and left side of the chest at nighttime only, associated pain in her left arm and upper back. Pain does not generally occur during the daytime, just at nighttime. She has been taking nitro, which does improve the pain. Her left chest is sore and very tender upon palpation, and the patient apparently is known to have history of coronary artery disease status post PCI and stent deployment to the left circumflex artery. She was seen at [facility] in last December for chest pain and underwent cardiac catheterization at that time. The catheterization revealed 1-vessel disease of the left circumflex with mid 50-60 stenosis prior to a patent distal stent. The patient reports compliance with aspirin and Plavix therapy, although ran out of Plavix 3 days ago. The patient was extensively investigated and has had an EKG, which showed that she was in sinus rhythm with a heart rate of 108, normal axis, no ST segment elevation or depression. She did have a CT scan of the chest with contrast, which showed that there is no acute pulmonary embolism. The heart is normal in size. No pericardial effusion. Thoracic aorta is normal in caliber. No aortic dissection. There is no mediastinal lymphadenopathy. The lungs are otherwise clear. No pleural effusion or pneumothorax. No axillary lymph nodes and upper abdomen is normal. There is no acute osseous abnormality except mild degenerative disk disease. She has had lab work, which showed that her coronavirus by PCR was negative. Her CBC was unremarkable and her first set of cardiac enzymes showed troponin I high sensitivity to be only 11. Her chemistry otherwise was unremarkable. The patient was admitted to do 2 more sets of cardiac enzyme and to consult the manager casino. PAST MEDICAL HISTORY: Significant for coronary artery disease, hypertension, bronchial asthma, chronic pain syndrome and anxiety. PAST SURGICAL HISTORY: Significant for PCI with stent deployment. FAMILY HISTORY: Positive for heart disease. SOCIAL HISTORY: She lives with her family. She smokes less than a pack a day, drinks alcohol occasionally. Does not use any drugs. ALLERGIES: SHE IS ALLERGIC TO ORANGE. MEDICATIONS: She is on Complera tablets 1 tablet daily for HIV, albuterol sulfate 2 puffs every 6 hours, Plavix 75 mg daily, nitroglycerin 0.4 mg sublingually every 5 minutes, atenolol and chlorthalidone 100/25 one tablet daily, aspirin 81 mg once a day, ibuprofen 600 mg 3 times a day, naproxen 500 mg daily, fluoxetine 40 mg daily and potassium chloride 2 tablets daily. REVIEW OF SYSTEMS: As per history of present illness. PHYSICAL EXAMINATION: GENERAL: On arrival, the patient looked well and was clearly in no apparent respiratory distress. No pallor, jaundice, cyanosis or thyromegaly. No jugular venous distention. No lower limb edema. VITAL SIGNS: Her heart rate was 108, blood pressure was 171/123, temperature 97.8, respiratory rate was 18 and oxygen saturation was 99% on room air. HEAD, EYES, EARS, NOSE AND THROAT: Normocephalic, atraumatic. NECK: Supple. HEART: Showed normal first and second heart sounds. No gallop, rub or murmur. CHEST: Clear to auscultation. No crepitation or rhonchi. ABDOMEN: Distended, soft, nontender. NEUROLOGIC: She was grossly intact. LABORATORY DATA: On arrival showed a white cell count of 7.6, hemoglobin 14, hematocrit 41, MCV 90 and platelet count of 261,000 with normal manual differential. Serum sodium was 140, potassium 4.8, chloride 105, bicarbonate 24, anion gap of 11, BUN 10, creatinine 0.5. Estimated GFR was 164 mL per minute. Her glucose was 95, calcium was 9. Total bilirubin, AST, ALT, alkaline phosphatase were normal. Her first set of cardiac enzymes showed troponin I high sensitivity was 11. Her total protein 6.4, albumin was 3. Her urinalysis was essentially unremarkable and toxic screen was positive for opiates. Her coronavirus by PCR was negative. ASSESSMENT AND PLAN: The patient was admitted to do two more sets of cardiac enzyme and to consult the Cardiology team. On questioning her further, the patient stated that she is lying almost flat in bed and she is taking her ibuprofen and naproxen, which probably increased acid reflux and her symptoms, especially that happen only at nighttime, are consistent with acid reflux that obviously responds to the nitroglycerin. ZEE/WDAE DR: Grahma TID: [id number]
[2021-09-26] MEDS ORDERED: MAALOX:LIDO:APAP 6:2:1 ORAL SUSPENSION 180 ML BOTTLE. PO PRN ×2 (17:30→17:48)
== END 2021-09-26 19:05 | disposition short-term general hospital (02) ==
LOC: ER 22:11 → 1 SOUTH 09-26 00:58 → INTOOBSV 09-26 00:58
PROVIDERS: ADMIT Hospitalist; ATTEND Hospitalist
DX: R07.89 Other chest pain (principal); Z20.822 Contact with and (suspected) exposure to COVID-19; I10 Essential (primary) hypertension; I25.10 Atherosclerotic heart disease of native coronary artery without angina pectoris; I25.2 Old myocardial infarction; J45.909 Unspecified asthma, uncomplicated; K21.9 Gastro-esophageal reflux disease without esophagitis; G89.4 Chronic pain syndrome; F41.9 Anxiety disorder, unspecified; E66.9 Obesity, unspecified; F17.200 Nicotine dependence, unspecified, uncomplicated; Z76.5 Malingerer [conscious simulation]; Z95.5 Presence of coronary angioplasty implant and graft; Z21 Asymptomatic human immunodeficiency virus [HIV] infection status; Z90.49 Acquired absence of other specified parts of digestive tract; Z98.51 Tubal ligation status; Z90.710 Acquired absence of both cervix and uterus; Z79.899 Other long term (current) drug therapy; Z98.890 Other specified postprocedural states; Z68.41 Body mass index [BMI] 40.0-44.9, adult
CPT/HCPCS: 36415; 71045; 71275; 80053; 80307; 81001; 84484; 85025; 87426; 93005; 96361; 96374; 96375; 96376; 99285; G0378; J1170; J1200; J2060; J2270; J2405; J7030; Q9967; U0003; G0379